=== PATIENT | male | born 1935 | race Caucasian/White ===

== ENCOUNTER 2019-08-03 16:54 | Inpatient (IN) | payer MEDICARE, BC, MEDICAID, SELFPAY ==
[2019-08-03 16:57] VITALS: BP 155/68; PULSE 72; RESP 18; TEMP 37; O2SAT 94; BMI 22.9
--- NOTE | 2019-08-03 17:39 | ED_ITS ---
HPI - General Adult General: Chief complaint: General Medical Stated complaint: CDIFF AND ECOLI; WEAKNESS Time Seen by Provider: 08/03/19 17:24 History of Present Illness: HPI narrative: Patient arrived via ambulance from correction originally went to [facility] and they refused to see him there in the ER because they said they do not do dialysis even though the patient is not scheduled for dialysis till tomorrow. Patient has history of C. difficile urinary tract infection Eduardo in place correction doctor said that he was dehydrated need a liter of fluid and they can get the IV started at the correction 3 nurses tried so he is here for IV fluids rehydration. Patient states he feels fine he said it does hurt some when he tries urinate through the Eduardo has no other problems. MD complaint: Dehydration renal failure Onset (ago): day(s) Associated symptoms: Reports no associated symptoms; Deny chest pain, dyspnea, fevers/chills, headache(s), nausea, rash or vomiting Review of Systems Narrative: See HPI patient here for dehydration IV fluid replacement patient has history of renal failure C. difficile E. coli infection patient states he feels fine would like to have some fluids been having some diarrhea. Is on antibiotic treatment. Const: Denies: fever, chills or body aches Eyes: Denies: change in vision or blurry vision ENMT: Denies: throat pain or nasal congestion Card: Denies: chest pain or shortness of breath on exertion Resp: Denies: shortness of breath, productive cough or non-productive cough GI: Denies: abdominal pain, nausea or vomiting : Denies: difficulty urinating Musc: Denies: extremity pain Skin/Breast: Denies: rash Neuro: Denies: headache Psych: Denies: anxiety or depression Clinton/Lymph: Denies: easy bruising PFSH ED PFSH: Social History Smoking and tobacco status: never smoked Physical Exam Const: COMMON NORMALS: no apparent distress, average body habitus and oriented x3 HENMT: COMMON NORMALS: normocephalic HEAD & SCALP: normal to inspection and normocephalic FACE & SINUS: normal facial exam Eye: COMMON NORMALS: conjunctivae normal GENERAL EYE: normal appearance of both eyes CONJUNCTIVA: Yes conjunctivae normal Neck/C-Spine: COMMON NORMALS: no JVD Chest: COMMONS NORMALS: inspection of chest normal Resp: COMMON NORMALS: normal respiratory effort and clear to auscultation bilaterally AUSCULTATION: clear to auscultation bilaterally Cardio: COMMON NORMALS: no JVD, regular rate and regular rhythm RATE: regular rate RHYTHM: regular rhythm GI: COMMON NORMALS: normal to inspection, nondistended, normoactive bowel sounds : BLADDER/KIDNEY EXAM: Yes other (Eduardo is in place) Extremity: COMMON NORMALS: normal to inspection and full ROM Neuro: COMMON NORMALS: oriented x3 Skin: COMMON NORMALS: negative for skin turgor normal (Poor turgor) GENERAL SKIN EXAM: abnormal elasticity and decreased turgor (Poor turgor) Course Vital Signs: Vital signs: Vital Signs Temperature 98.6 F 08/03/19 16:57 Pulse Rate 69 08/03/19 21:12 Respiratory Rate 18 08/03/19 21:12 Blood Pressure 136/62 08/03/19 21:12 Pulse Oximetry 93 08/03/19 21:12 MDM - General Adult MDM Narrative: Medical decision making narrative: spoke with Dr. England and Dr. De Leon pt to be admitted Lab Data: Labs: Lab Results 08/03/19 08/03/19 08/03/19 Range/Units 17:47 17:47 19:34 WBC 22.8 H (4.0-10.0) 10^3/ uL RBC 2.52 L (4.1-5.3) 10^6/u L Hgb 8.3 L (11.7-16.6) g/dL Hct 28.4 L (42.0-52.0) % MCV 112.7 H (80-94) fL MCH 32.9 (28.0-34.0) pg MCHC 29.2 L (30.0-36.0) g/dL RDW 21.9 H (12.1-15.1) % Plt Count 324 (130-400) 10^3/c mm MPV 13.0 H (7.4-10.4) fL Neut % (Auto) 57.8 % Lymph % (Auto) 2.9 % [place] % (Auto) 38.2 % Eos % (Auto) 0.0 % Baso % (Auto) 0.0 % Neut # (Auto) 13.1 H (1.8-7.7) 10^3/u L Lymph # (Auto) 0.7 L (0.8-4.8) 10^3/u L [place] # (Auto) 8.7 H (0.2-0.9) 10^3/u L Eos # (Auto) 0.0 (0.0-0.8) 10^3/u L Baso # (Auto) 0.0 (0.0-0.1) 10^3/u L Nucleated RBC % (a uto) 0.1 % Nucleated RBCs # 0.0 /100WBC Sodium 136 (136-145) mmol/L Potassium 4.3 (3.5-5.1) mmol/L Chloride 96 L (98-107) mmol/L Carbon Dioxide 26 (22-29) mmol/L Anion Gap 18.3 (5-19) BUN 51 H (8-23) mg/dL Creatinine 8.9 H* (0.7-1.2) mg/dL Glucose 91 (65-115) mg/dL Calculated Osmolal ity 280 L (285-295) mOsm/k g Calcium 8.4 L (8.5-10.5) mg/dL Total Bilirubin 0.6 (0.15-1.2) mg/dL AST 14 (0-40) U/L ALT 7 (0-41) U/L Alkaline Phosphata se 60 (40-130) IU/L Total Protein 7.6 (6.6-8.7) g/dL Albumin 3.6 (3.5-5.2) g/dL Globulin 4.0 (1.3-4.6) g/dL Urine Color Yellow (Yellow) Urine Appearance Cloudy (CLEAR) Urine pH 8 H (5-7) Ur Specific Gravit y 1.010 (1.005-1.030) Urine Protein 1+ H (Negative) Urine Glucose (UA) Norm (Normal) Urine Ketones Negative (Negative) Urine Blood 3+ H (Negative) Urine Nitrate Negative (Negative) Urine Bilirubin Neg (NEGATIVE) Prot Sulfosalicyli c Acd Positive (Negative) Urine Urobilinogen Norm (Negative) mg/dL Ur Leukocyte Ira ase 2+ H (Negative) Urine RBC 5-10 H (0-2) /hpf Urine WBC >100 H (0-5) /hpf Ur Squamous Epith Cells 0-4 H (0-5) Urine Bacteria 3+ H (NONE) Discharge Plan Discharge Patient Disposition: Admitted As Inpatient Clinical Impression: Clostridioides difficile infection, Acute UTI, Norovirus Chronic renal disease Qualifiers: Chronic kidney disease stage: stage 4 (severe) Qualified Code(s): N18.4 - Chronic kidney disease, stage 4 (severe) Condition: Stable Coding Level of Care Code 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
[2019-08-03 18:12] LABS: Hematocrit 28.4 % (42.0-52.0); Hemoglobin 8.3 g/dL (11.7-16.6); Lymphocytes # 0.7 10^3/uL (0.8-4.8); Lymphocytes % 2.9 %; Mean Corpuscular HGB Conc 29.2 g/dL (30.0-36.0); Mean Corpuscular Hemoglobin 32.9 pg (28.0-34.0); Mean Corpuscular Volume 112.7 fL (80-94); Monocytes # 8.7 10^3/uL (0.2-0.9); Monocytes % 38.2 %; Neutrophils # 13.1 10^3/uL (1.8-7.7); Neutrophils % 57.8 %; Nucleated Red Blood Cells % 0.1 %; Platelet Count 324 10^3/cmm (130-400); Red Blood Count 2.52 10^6/uL (4.1-5.3); Red Cell Distribution Width 21.9 % (12.1-15.1); White Blood Count 22.8 10^3/uL (4.0-10.0)
[2019-08-03 18:31] LABS: Alanine Aminotransferase 7 U/L (0-41); Albumin Level 3.6 g/dL (3.5-5.2); Alkaline Phosphatase 60 IU/L (40-130); Anion Gap 18.3 (5-19); Aspartate Amino Transferase 14 U/L (0-40); Blood Urea Nitrogen 51 mg/dL (8-23); Calcium 8.4 mg/dL (8.5-10.5); Carbon Dioxide 26 mmol/L (22-29); Chloride 96 mmol/L (98-107); Glucose 91 mg/dL (65-115); Osmolality Calculated 280 mOsm/kg (285-295); Potassium 4.3 mmol/L (3.5-5.1); Sodium 136 mmol/L (136-145); Total Bilirubin 0.6 mg/dL (0.15-1.2); Total Protein 7.6 g/dL (6.6-8.7)
[2019-08-03] MEDS: sodium chloride 0.9% 1,000 ML 999 ML IV (18:46)
[2019-08-03 18:47] VITALS: PULSE 74; RESP 18; O2SAT 92
[2019-08-03 18:49] LABS: Slide Review Slide Review Perform
--- NOTE | 2019-08-03 19:04 | XR_ITS ---
WS: [id number] PORTABLE CHEST HISTORY: low sat COMPARISON: None available. Hyperinflated lungs. No pneumonia. Interstitial thickening at the lung bases may be chronic or due to pneumonitis. Inflammatory changes were noted at the lung bases on the CT from 08/03/2019. No pleural effusion or pneumothorax. Cardiac size: Normal. Mediastinum/Aorta: Mild atherosclerosis aorta. No osseous abnormality seen. Arterial stent in the soft tissues of the LEFT upper extremity. XR/XR chest 1V portable [id number] IMPRESSION: 1. Chronic emphysema. 2. Interstitial thickening at the lung bases corresponds to pneumonitis and in flammatory changes as seen on the CT from 08/03/2019.
--- NOTE | 2019-08-03 19:17 | CTR_ITS ---
PROCEDURE INFORMATION: Exam: CT Abdomen And Pelvis Without Contrast Exam date and time: 08/03/2019 7:18 PM Age: 83 years old Clinical indication: Abnormal findings; Abnormal lab test; Other: C-diff and norovirus; Prior surgery; Surgery date: 6+ months; Surgery type: Nephrectomy; Additional info: C. Diff, norovirus, dialysis TECHNIQUE: Imaging protocol: Computed tomography of the abdomen and pelvis without contrast. Total DLP: 617.68 mGy-cm Radiation optimization: All CT scans at this facility use at least one of these dose optimization techniques: automated exposure control; mA and/or kV adjustment per patient size (includes targeted exams where dose is matched to clinical indication); or iterative reconstruction. COMPARISON: No relevant prior studies available. FINDINGS: Tubes, catheters and devices: A balloon bladder catheter is present. Lungs: Nonspecific bibasilar opacity is present, consistent with atelectasis, edema, or pneumonia. There is some pneumonitis with a tree-in-bud appearance in the right middle lobe image 4 in 5. Pleural space: There are small pleural effusions. Heart: There is a trace amount of pericardial fluid. Mediastinum: A small hiatal hernia is present. Liver: Unremarkable.No mass. Gallbladder and bile ducts: The gallbladder is partially collapsed. Pancreas: Normal. No ductal dilation. Spleen: Normal. No splenomegaly. Adrenals: Normal. No mass. Kidneys and ureters: There is a 1.2 cm hyperdense lesion midpole right kidney with Hounsfield unit measurement of 100. This is compatible with a hemorrhagic or proteinaceous cyst. Next live there is a solitary right kidney. No hydronephrosis or stones. Simple fluid density right renal cysts are also noted with the largest protruding from the lower pole right kidney measuring 2.2 cm in size. Stomach and bowel: There is mild diffuse small bowel distention with fluid with mild wall thickening compatible with enteritis. There is a very mild wall thickening in the colon compatible with very mild diffuse colitis. There is fluid density within the colon compatible with probable diarrhea. Appendix: A normal appendix is identified. Intraperitoneal space: No free air. No abscess. 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 No leak. Both proximal right common iliac arteries measure 1.5 cm. Lymph nodes: Unremarkable.No enlarged lymph nodes. Bladder: There is nonspecific bladder wall thickening. This may be related to incomplete distention. Reproductive: The prostate demonstrates moderate nonspecific enlargement. The seminal vesicles are normal. Bones/joints: Osteopenia and moderate degenerative changes in the spine are noted. No acute bony abnormality. Soft tissues: There is a small fat filled right inguinal hernia. Other findings: There is severe emphysematous changes. CT/CT abdomen pelvis wo con [id number] IMPRESSION: 1. Nonspecific bibasilar opacity is present, consistent with atelectasis, edema, or pneumonia. There are small pleural effusions. 2. Solitary right kidney. Fluid density right renal cortical cysts and hemorrhagic/proteinaceous cyst right kidney. No follow-up is necessary. No hydronephrosis or nephrolithiasis. 3. Mild small bowel enteritis. Mild diffuse colitis. No abscess or free air. Radiation Dose CTDIVOL = (mGy): DLP = 617.68 (mGy-cm)
[2019-08-03] MEDS: metroNIDAZOLE 500 MG Tablet 250 MG PO (20:14)
[2019-08-03 20:16] LABS: Add Urine Microscopic? YES; Bilirubin Urine Neg (NEGATIVE); Blood Urine 3+ (Negative); Glucose Urine UA Norm (Normal); Ketones Urine Negative (Negative); Leukocyte Esterase Urine 2+ (Negative); Nitrate Urine Negative (Negative); Protein Urine 1+ (Negative); Sulfosalicylic Acid Urine Positive (Negative); Urine Appearance Cloudy (CLEAR); Urine Color Yellow (Yellow); Urobilinogen Urine Norm (Negative); pH Urine 8 (5-7)
[2019-08-03 20:17] LABS: Add Urine Culture? Yes; Bacteria Urine 3+; Squamous Epithelial Cell Urine 0-4 (0-5); WBC Urine >100 /hpf (0-5)
[2019-08-03 21:12] VITALS: BP 136/62; PULSE 69; RESP 18; O2SAT 93
--- NOTE | 2019-08-03 22:27 | P.HP_ITS ---
Providers/Chief Complaint Chief Complaint: CDIFF AND ECOLI; WEAKNESS History of Present Illness RYLIE FLOYD is a 83 year old male who carries diagnosis of end-stage renal disease Sunday hemodialysis dependent, resident of a [place] [facility] came in today after 3-day history of diarrhea. Patient is stating that his symptoms started 3 days ago, before that he was getting bowel regimen, he was having clear watery diarrhea, it was profuse, he required a urinary catheter bec ause he was needing frequent diaper change. No fever or blood noticed. He is denying recent use of antibiotics, no chest pain shortness of breath nausea or vomiting. I called [place] [facility] to get the report, nurses telling me that there are 7-8 people in the same area who have diarrhea, Mr. Cabrera was sent to [facility] where he was resuscitated with 1 L fluid for dehydration, his stool studies are positive for C. difficile and norovirus he was sent to our hospital because he will require dialysis in the morning. Diagnosis in ER revealed severe leukocytosis 22.8, severe anemia hemoglobin 8.3 Normal potassium, abnormal creatinine 8.9, He is having recurrent episodes of loose stools, he has been afebrile, urinalysis shows cloudy urine with positive leukocyte esterase he was given oral vancomycin and ceftriaxone in the ER (patient is stating that he suffered from dysuria 2 days ago which is not the case anymore and Eduardo catheter was placed when he experienced profuse diarrhea) Review of Systems Const: Reports: body aches, fatigue and malaise; Denies: fever or chills Eyes: Denies: change in vision or blurry vision ENMT: Denies: throat pain Card: Denies: chest pain Resp: Denies: shortness of breath GI: Reports: diarrhea and change in stool character; Denies: abdominal pain, nausea or vomiting : Reports: urinary urgency; Denies: flank pain or difficulty urinating Musc: Denies: neck pain or back pain Skin/Breast: Denies: rash or itching Neuro: Denies: headache Psych: Denies: anxiety Endo: Denies: excessive urination Clinton/Lymph: Denies: easy bruising All/Imm: Denies: hives Medications/Allergies Home Medications Medication Instructions Recorded Confirmed Last Taken Type alum-mag hydroxide-simeth [Mylanta 30 ml PO TID PRN 08/03/19 08/03/19 08/01/19 History Maximum Strength] bisacodyl [Dulcolax (bisacodyl)] 5 mg PO DAILY PRN 08/03/19 08/03/19 Unknown History bisacodyl [Dulcolax (bisacodyl)] 10 mg NV DAILY PRN 08/03/19 08/03/19 Unknown History diphenhydramine HCl [Benadryl 25 mg PO Q6H PRN 08/03/19 08/03/19 Unknown History Allergy] loratadine [Claritin] 10 mg PO DAILY 08/03/19 08/03/19 08/03/19 History magnesium citrate 150 ml PO DAILY PRN 08/03/19 08/03/19 Unknown History magnesium hydroxide [Milk of 30 ml PO DAILY PRN 08/03/19 08/03/19 Unknown History Magnesia] midodrine 5 mg PO QMWF 08/03/19 08/03/19 08/01/19 History midodrine 10 mg PO TID 08/03/19 08/03/19 08/03/19 History omeprazole 20 mg PO DAILY 08/03/19 08/03/19 08/03/19 History ondansetron HCl [Zofran] 4 mg PO Q6H PRN 08/03/19 08/03/19 Unknown History pantoprazole [Protonix] 40 mg PO DAILY 08/03/19 08/03/19 08/03/19 History ydkvfxqquzrlg-OK-zifjodyzawv 15 ml PO Q4H PRN 08/03/19 08/03/19 Unknown History [Robitussin Cough and Cold CF] vit B,B-PR-yapu-selen-vit D3-E 1 tab PO DAILY 08/03/19 08/03/19 08/03/19 History [RenaPlex-D] Allergies Allergy/AdvReac Type Severity Reaction Status Date / Time hydrocodone Allergy Unknown Verified 08/03/19 17:06 oxycodone Allergy Unknown Verified 08/03/19 17:06 PFSH Acute PFSH: Medical History (Updated 08/03/19 @ 23:32 by Ralph Stanley MD) 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 Chronic anemia Dieulafoy lesion (hemorrhagic) of intestine DNR (do not resuscitate) End stage renal disease GI bleed Due to dieulafoy lesion, AVM Glaucoma Metabolic encephalopathy Mitral valve regurgitation NSTEMI (non-ST elevated myocardial infarction) Prostate cancer s/p cryotherapy Recurrent UTI Renal cell carcinoma Left-sided Small bowel obstruction Takotsubo cardiomyopathy Thrombocytopenia Surgical History (Updated 08/03/19 @ 23:30 by Ralph Stanley MD) H/O colectomy 7 inches removed H/O inguinal hernia repair H/O nasal septoplasty History of nephrectomy Left-sided S/P colonoscopic polypectomy Family History (Updated 08/03/19 @ 23:30 by Ralph Stanley MD) Denies family history of Clotting disorder Dementia Social History (Updated 08/03/19 @ 23:30 by Ralph Stanley MD) Smoking and tobacco status: never smoked Alcohol intake: never Substance/Drug Use: never Housing: [facility] Vitals/I&O/Wt Last Vital Signs Temp 98.6 F 08/03/19 16:57 Pulse 69 08/03/19 21:12 Resp 18 08/03/19 21:12 BP 136/62 08/03/19 21:12 Pulse Ox 93 08/03/19 21:12 08/03/19 08/03/19 08/03/19 06:59 14:59 22:59 Intake Total 1000 / 1000 Balance 1000 / 1000 Weight last 48 hrs Weight 72.575 kg Physical Exam Narrative: EXAM NARRATIVE: This is a very pleasant male He sitting in the bed without any active distress able to give me all the details of mentioned above S1, S2 no tachycardia or signs of heart failure, clinically looks dehydrated Abdomen soft nontender nondistended bowel sound present Lungs are clear to auscultation Neurologically nonfocal exam Eduardo catheter draining cloudy yellow urine EOMI, PERRLA Appropriate mood and affect No ischemia gangrene ulcer of lower extremity Clinically dehydrated Data : 08/03/19 17:47 08/03/19 17:47 A&P Assessment and plan (1) Clostridioides difficile infection: Status: Acute (2) Acute UTI: Status: Acute (3) Norovirus: Status: Acute (4) Chronic renal disease: Status: Acute Qualifiers: Chronic kidney disease stage: stage 4 (severe) Qualified Code(s): N18.4 - Chronic kidney disease, stage 4 (severe) (5) Chronic anemia: Status: Acute Additional A&P Information Severe C. difficile without sepsis severe leukocytosis without tachycardia, tachypnea or fever, abnormal creatinine, age above 60 Oral vancomycin higher dose, IV metronidazole Contact isolation No recent use of antibiotics, there are 7 other people experiencing diarrhea at the [place] [facility], he also has norovirus, He has been resuscitated with 1 L normal saline fluid, currently not tachycardic, I would continue low-dose maintenance fluid because of profuse diarrhea Records reviewed CT abdomen consistent with enteritis/colitis and bladder wall thickening UTI: Patient endorsed dysuria 2 days ago with onset of diarrhea, I would cont inue ceftriaxone, he is endorsing signs plus urinalysis is cloudy urine with positive leukocyte esterase, remove Eduardo catheter before his discharge End-stage renal disease Sunday hemodialysis dependent Telemetry neon installer has been informed and consulted No urgent need of dialysis Chronic anemia due to GI blood loss I would hold DVT prophylaxis with anticoagulation, keep him on Protonix 40 mg p.o. daily, Monitor H&H, previously he has required multiple transfusions, endoscopies and colonoscopies because of AV malformations in the gastrointestinal mucosa Dehydration due to profuse diarrhea Currently not sinus tachycardia, I will check lactic acid, judicious use of fluids DNR/DNI Renal diet Contact isolation DVT prophylaxis: SCDs Attestations Medical Necessity Statement*: Anticipating stay in the hospital to cross more than 2 days currently has severe C. 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
[2019-08-03 22:59] VITALS: BP 124/62; PULSE 75; RESP 18; O2SAT 94
[2019-08-03 23:10] VITALS: BP 124/62; PULSE 72; RESP 16; TEMP 37; O2SAT 93
[2019-08-03 23:48] VITALS: BP 138/51; PULSE 82; RESP 18; TEMP 36.4; O2SAT 90
[2019-08-04] MEDS: sodium chloride 0.9% 1,000 ML 30 ML IV (00:28)
--- NOTE | 2019-08-04 00:36 | PC.NURSE ---
pt with loose stool up to cammode without difficutly.
--- NOTE | 2019-08-04 00:38 | PC.NURSE ---
Er nurse reported pt with cook from group home, pt reports having difficulty voiding yesterday and cook was placed at that time. Pt reports does dialysis m/w/f at [facility]. Fistula in place to left arm sign placed for no blood draws/iv or bp to that arm.
[2019-08-04] MEDS: metroNIDAZOLE IV 500 MG/100 ML PREMIX 100 MG IV ×3 (03:48→20:39)
[2019-08-04 03:49] VITALS: BP 110/53; PULSE 70; RESP 17; TEMP 36.3; O2SAT 93
[2019-08-04 05:45] LABS: Basophils % 0.1 %; Eosinophils % 0.1 %; Hematocrit 24.4 % (42.0-52.0); Hemoglobin 7.2 g/dL (11.7-16.6); Lymphocytes # 0.6 10^3/uL (0.8-4.8); Lymphocytes % 3.5 %; Mean Corpuscular HGB Conc 29.5 g/dL (30.0-36.0); Mean Corpuscular Hemoglobin 33.3 pg (28.0-34.0); Mean Platelet Volume 12.8 fL (7.4-10.4); Monocytes # 5.7 10^3/uL (0.2-0.9); Monocytes % 32.7 %; Neutrophils # 10.9 10^3/uL (1.8-7.7); Neutrophils % 62.3 %; Nucleated Red Blood Cells % 0 %; Platelet Count 272 10^3/cmm (130-400); Red Blood Count 2.16 10^6/uL (4.1-5.3); Red Cell Distribution Width 21.4 % (12.1-15.1); White Blood Count 17.4 10^3/uL (4.0-10.0)
[2019-08-04 05:55] LABS: Anion Gap 16.3 (5-19); Blood Urea Nitrogen 54 mg/dL (8-23); Calcium 7.9 mg/dL (8.5-10.5); Carbon Dioxide 24 mmol/L (22-29); Chloride 102 mmol/L (98-107); Glucose 95 mg/dL (65-115); Osmolality Calculated 284 mOsm/kg (285-295); Potassium 4.3 mmol/L (3.5-5.1); Sodium 138 mmol/L (136-145)
[2019-08-04 07:00] VITALS: BP 100/49; PULSE 65; RESP 24; TEMP 36.6; O2SAT 93
[2019-08-04] MEDS: cefTRIAXone 1,000 MG in sodium chloride 0.9% (plus) 50 ML 100 MG IV (09:27)
[2019-08-04] MEDS: midodrine 5 mg TABLET 10 MG PO ×3 (09:28→20:39)
[2019-08-04 11:00] VITALS: BP 120/47; PULSE 69; RESP 16; TEMP 36.4; O2SAT 94
--- NOTE | 2019-08-04 11:33 | PM.PN ---
Subjective Subjective: Interval history: Chart reviewed, had 600 mL urine output overnight, 2 BMs so far today, HD today. AM labs noted, decreasing leukocytosis. Patient seen and examined following return from hemodialysis, reports feeling better, stool seems to be solidifying, good oral intake. Medications: Reviewed: Yes Medication Review Details: Active Medications Generic Name Dose Route Start Last Admin Trade Name Freq PRN Reason Stop Dose Admin Metronidazole 500 mg in 100 mls @ 100 mls/hr 08/04/19 04:00 08/04/19 03:48 Flagyl Iv IV 100 mls/hr Q8H CLAUDIA Administration Ceftriaxone Sodium 1,000 mg/ 50 mls @ 100 mls/ hr 08/04/19 09:00 08/04/19 09:27 Sodium Chloride IV 100 mls/hr DAILY CLAUDIA Administration Protocol Sodium Chloride 1,000 mls @ 30 ml s/hr 08/04/19 00:06 08/04/19 00:28 Sodium Chloride 0.9% IV 30 mls/hr .Q24H CLAUDIA Administration Midodrine 10 mg 08/04/19 09:00 08/04/19 09:28 Proamatine PO 10 mg TID CLAUDIA Administration Vancomycin HCl 250 mg 08/04/19 09:00 08/04/19 09:28 Vancocin PO 2.5 ml QID CLAUDIA Administration hydrocodone Allergy (Verified 08/03/19 17:06) Unknown oxycodone Allergy (Verified 08/03/19 17:06) Unknown Vitals/I&O/Wt Last Vital Signs Temp 97.5 F L 08/04/19 11:00 Pulse 69 08/04/19 11:00 Resp 16 08/04/19 11:00 BP 120/47 08/04/19 11:00 Pulse Ox 94 08/04/19 11:00 08/03/19 08/04/19 08/04/19 22:59 06:59 14:59 Intake Total 1000 / 1000 170 / 1170 240 / 240 Output Total 600 / 600 Balance 1000 / 1000 -430 / 570 240 / 240 Weight last 48 hrs Weight 72.575 kg Physical Exam Const: COMMON NORMALS: no apparent distress and oriented x3 GENERAL APPEARANCE: cooperative and comfortable ORIENTATION/CONSCIOUSNESS: Yes awake HENMT: COMMON NORMALS: normocephalic, head/scalp atraumatic, hearing grossly normal bilaterally and moist oral mucous membranes HEAD & SCALP: normocephalic and atraumatic Eye: COMMON NORMALS: PERRL, EOMs intact bilaterally and conjunctivae normal CONJUNCTIVA: Yes conjunctivae normal PUPIL: Yes PERRL Neck/C-Spine: COMMON NORMALS: full ROM GENERAL: Yes normal visual inspection and Yes trachea midline Resp: COMMON NORMALS: normal respiratory effort, no retractions, no use of accessory muscles and clear to auscultation bilaterally EFFORT & INSPECTION: Yes able to speak in complete sentences, Yes symmetric chest movement and No tachypneic AUSCULTATION: clear to auscultation bilaterally Cardio: COMMON NORMALS: regular rate, regular rhythm, S1 normal heart sound, S2 normal heart sound and no murmurs RATE: regular rate RHYTHM: regular rhythm HEART SOUNDS: S1 normal and S2 normal GI: COMMON NORMALS: normal to inspection, nondistended, normoactive bowel sounds, soft to palpation and non-tender PALPATION: Yes soft Extremity: COMMON NORMALS: normal to inspection, full ROM and no clubbing, cyanosis or edema OTHER: -LUE AV fistula Neuro: COMMON NORMALS: oriented x3, moves all extremities, no focal motor deficits and no sensory deficits noted Psych: COMMON NORMALS: mental status grossly normal, thought process normal, cooperative, affect normal and speech normal SPEECH: Yes normal speech THOUGHT PROCESS: normal thought process Skin: COMMON NORMALS: no rashes or lesions noted, no jaundice, no petechiae and no mottling GENERAL SKIN EXAM: no rashes or lesions noted Data : 08/04/19 05:31 08/04/19 05:31 Micro: Microbiology 08/04/19 00:17 Blood Culture - Preliminary Blood SPECIMEN COLLECTED 08/04/19 00:16 Blood Culture - Preliminary Blood SPECIMEN COLLECTED A&P Assessment and plan (1) Clostridioides difficile infection: -found to be positive for C.difficile and Norovirus -continue oral vancomycin and Flagyl; dual antibiotic treatment due to severity of infection (increased leukocytosis) -contact isolation precautions -noted evidence of mild enteritis and mild diffuse colitis on imaging, no abscess or free air noted Status: Acute (2) Acute UTI: -UA strongly indicative of infection (+pyuria/bacteria/LE) -f/u urine and blood cx -continue Ceftriaxone -had Eduardo catheter placed at [facility] Status: Acute (3) Chronic renal disease: -patient has known ESRD on HD (MWF), access is L AV fistula -Nephrology consult appreciated -renally dose meds, avoid nephrotoxins -has solitary R kidney Status: Chronic Qualifiers: Chronic kidney disease stage: stage 4 (severe) Qualified Code(s): N18.4 - Chronic kidney disease, stage 4 (severe) Additional A&P Information -Advanced age -has known acute on chronic macrocytic anemia; baseline Hg unknown; continue to monitor H/H -prior hx of RCC s/p L nephrectomy -hx of cardiomyopathy -renal diet as tolerated -DVT ppx with SCDs, no AC due to anemia -Dispo: [facility] ([facility]) -Code status: DNR/DNI Attestations Medical Necessity Statement*: Patient requires hospitalization for continued treatment of C. difficile colitis and UTI pending culture results, on IV antibiotics. Time Spent in Patient Care: Greater than 35 minutes (>than 50% of time spent in counselling and/or direct pt care on unit). Coding Level of Care Code Acute Filler Shredding Machine Loader for Chg Fwd Exam Comprehensive Diagnoses Clostridioides difficile infection A49.8 Acute UTI N39.0 Chronic renal disease N18.4 Chronic kidney disease stage: stage 4 (severe)
--- NOTE | 2019-08-04 11:36 | P.PN_ITS ---
Subjective Subjective: Interval history: Thanks for consult. Mr Patel came in with severe diarrhea for the last 3 days prior to admission. This is starting to resolve in house and he is eating and drinking well. He denies abdo pain. He has been on dialysis for 3 years via a left AVF. He is on HD for 3.5 hrs. He denies edema and other volume assoc Sx. No uremic Sx. Hemodynamics are stable. Vitals/I&O/Wt Last Vital Signs Temp 97.5 F L 08/04/19 11:00 Pulse 69 08/04/19 11:00 Resp 16 08/04/19 11:00 BP 120/47 08/04/19 11:00 Pulse Ox 94 08/04/19 11:00 08/03/19 08/04/19 08/04/19 22:59 06:59 14:59 Intake Total 1000 / 1000 170 / 1170 240 / 240 Output Total 600 / 600 Balance 1000 / 1000 -430 / 570 240 / 240 Weight last 48 hrs Weight 72.575 kg Physical Exam Narrative: EXAM NARRATIVE: This is a very pleasant male He sitting in the bed without any active distress able to give me all the details of mentioned above S1, S2 no tachycardia or signs of heart failure, clinically looks dehydrated Abdomen soft nontender nondistended bowel sound present Lungs are clear to auscultation Neurologically nonfocal exam Eduardo catheter draining cloudy yellow urine EOMI, PERRLA Appropriate mood and affect No ischemia gangrene ulcer of lower extremity Clinically dehydrated Const: COMMON NORMALS: no apparent distress, average body habitus and oriented x3 HENMT: COMMON NORMALS: normocephalic HEAD & SCALP: normal to inspection and normocephalic FACE & SINUS: normal facial exam Eye: COMMON NORMALS: conjunctivae normal GENERAL EYE: normal appearance of both eyes CONJUNCTIVA: Yes conjunctivae normal Neck/C-Spine: COMMON NORMALS: no JVD Chest: COMMONS NORMALS: inspection of chest normal Resp: COMMON NORMALS: normal respiratory effort and clear to auscultation bilaterally AUSCULTATION: clear to auscultation bilaterally Cardio: COMMON NORMALS: no JVD, regular rate and regular rhythm RATE: regular rate RHYTHM: regular rhythm GI: COMMON NORMALS: normal to inspection, nondistended, normoactive bowel sounds : BLADDER/KIDNEY EXAM: Yes other (Eduardo is in place) Extremity: COMMON NORMALS: normal to inspection and full ROM Neuro: COMMON NORMALS: oriented x3 Skin: COMMON NORMALS: negative for skin turgor normal (Poor turgor) GENERAL SKIN EXAM: abnormal elasticity and decreased turgor (Poor turgor) Data : 08/04/19 05:31 08/04/19 05:31 Micro: Microbiology 08/04/19 00:17 Blood Culture - Preliminary Blood SPECIMEN COLLECTED 08/04/19 00:16 Blood Culture - Preliminary Blood SPECIMEN COLLECTED A&P Additional A&P Information 1. ESRD - for HD today, 3.5hrs, 3K, no UF - dose meds for eGFR < 15 on dialysis - cont MWF schedule 2. Diarrhea - CDiff r/o - Mgmt per primary team - resolving now - on gentle ivf 3. Hemodynamics stable 4. Anemia of ESRD - Hb pretty low and he will need PRBCs if it drops much more - EPO and iron as outpatient (if he has an extended stay I will dose in house) - thanks, will follow Attestations Medical Necessity Statement*: mgmt of ESRD Coding Level of Care Code Acute Supervisor Packing Room for Garrett Choi
[2019-08-04 15:00] VITALS: BP 149/55; PULSE 96; RESP 20; TEMP 36.4; O2SAT 95
[2019-08-04 19:00] VITALS: BP 162/71; PULSE 66; RESP 18; TEMP 36.4; O2SAT 98
[2019-08-04 23:00] VITALS: BP 149/57; PULSE 69; RESP 20; TEMP 36.9; O2SAT 95
[2019-08-05 03:00] VITALS: BP 126/55; PULSE 72; RESP 20; TEMP 36.6; O2SAT 90
[2019-08-05] MEDS: metroNIDAZOLE IV 500 MG/100 ML PREMIX 100 MG IV (04:10)
[2019-08-05 06:04] LABS: Basophils % 0.1 %; Eosinophils % 0.2 %; Hematocrit 24.8 % (42.0-52.0); Hemoglobin 7.2 g/dL (11.7-16.6); Lymphocytes # 0.5 10^3/uL (0.8-4.8); Lymphocytes % 4.2 %; Mean Corpuscular Hemoglobin 32.9 pg (28.0-34.0); Mean Corpuscular Volume 113.2 fL (80-94); Monocytes # 4.8 10^3/uL (0.2-0.9); Monocytes % 37.4 %; Neutrophils # 7.2 10^3/uL (1.8-7.7); Neutrophils % 56.1 %; Nucleated Red Blood Cells % 0 %; Platelet Count 245 10^3/cmm (130-400); Red Blood Count 2.19 10^6/uL (4.1-5.3); Red Cell Distribution Width 21.1 % (12.1-15.1); White Blood Count 12.7 10^3/uL (4.0-10.0)
[2019-08-05 06:28] LABS: Anion Gap 16.4 (5-19); Blood Urea Nitrogen 28 mg/dL (8-23); Calcium 8.3 mg/dL (8.5-10.5); Carbon Dioxide 26 mmol/L (22-29); Chloride 102 mmol/L (98-107); Glucose 98 mg/dL (65-115); Osmolality Calculated 287 mOsm/kg (285-295); Potassium 4.4 mmol/L (3.5-5.1); Sodium 140 mmol/L (136-145)
[2019-08-05 07:40] VITALS: BP 139/63; PULSE 73; RESP 18; TEMP 37; O2SAT 97
[2019-08-05] MEDS: sodium chloride 0.9% 1,000 ML 30 ML IV (07:53)
[2019-08-05] MEDS: midodrine 5 mg TABLET 10 MG PO ×3 (09:00→21:10)
[2019-08-05] MEDS: cefTRIAXone 1,000 MG in sodium chloride 0.9% (plus) 50 ML 100 MG IV (09:00)
[2019-08-05 11:00] VITALS: BP 154/61; PULSE 63; RESP 18; TEMP 36.9; O2SAT 95
--- NOTE | 2019-08-05 11:59 | P.PN_ITS ---
Subjective Subjective: Interval history: AM labs noted, decreasing leukocytosis. Prelim urine cx-GNRs. Patient seen and examined, resting in bed, states he has had a good day so far, 3 soft BMs so far, good appetite. Medications: Reviewed: Yes Medication Review Details: Active Medications Generic Name Dose Route Start Last Admin Trade Name Freq PRN Reason Stop Dose Admin Metronidazole 500 mg in 100 mls @ 100 mls/hr 08/04/19 04:00 08/05/19 05:10 Flagyl Iv IV Infused Q8H CLAUDIA Infusion Ceftriaxone Sodium 1,000 mg/ 50 mls @ 100 mls/ hr 08/04/19 09:00 08/05/19 09:00 Sodium Chloride IV 100 mls/hr DAILY CLAUDIA Administration Protocol Sodium Chloride 1,000 mls @ 30 ml s/hr 08/04/19 00:06 08/05/19 07:53 Sodium Chloride 0.9% IV 30 mls/hr .Q24H CLAUDIA Administration Midodrine 10 mg 08/04/19 09:00 08/05/19 09:00 Proamatine PO 10 mg TID CLAUDIA Administration Ondansetron HCl 4 mg 08/05/19 07:46 Zofran IVP Q6H PRN NAUSEA AND VOMITI NG Vancomycin HCl 250 mg 08/04/19 09:00 08/05/19 09:01 Vancocin PO 2.5 ml QID CLAUDIA Administration hydrocodone Allergy (Verified 08/03/19 17:06) Unknown oxycodone Allergy (Verified 08/03/19 17:06) Unknown Vitals/I&O/Wt Last Vital Signs Temp 98.4 F 08/05/19 11:00 Pulse 63 08/05/19 11:00 Resp 18 08/05/19 11:00 BP 154/61 08/05/19 11:00 Pulse Ox 95 08/05/19 11:00 08/04/19 08/05/19 08/05/19 22:59 06:59 14:59 Intake Total 760 / 1240 100 / 1340 992.5 / 992.5 Output Total 210 / 210 Balance 760 / 1240 -110 / 1130 992.5 / 992.5 Weight last 48 hrs Weight 72.575 kg Physical Exam Const: COMMON NORMALS: no apparent distress and oriented x3 GENERAL APPEARANCE: cooperative and comfortable ORIENTATION/CONSCIOUSNESS: Yes awake HENMT: COMMON NORMALS: normocephalic, head/scalp atraumatic, hearing grossly normal bilaterally and moist oral mucous membranes HEAD & SCALP: normocephalic and atraumatic Eye: COMMON NORMALS: PERRL, EOMs intact bilaterally and conjunctivae normal CONJUNCTIVA: Yes conjunctivae normal PUPIL: Yes PERRL Neck/C-Spine: COMMON NORMALS: full ROM GENERAL: Yes normal visual inspection and Yes trachea midline Resp: COMMON NORMALS: normal respiratory effort, no retractions, no use of accessory muscles and clear to auscultation bilaterally EFFORT & INSPECTION: Yes able to speak in complete sentences, Yes symmetric chest movement and No tachypneic AUSCULTATION: clear to auscultation bilaterally Cardio: COMMON NORMALS: regular rate, regular rhythm, S1 normal heart sound, S2 normal heart sound and no murmurs RATE: regular rate RHYTHM: regular rhythm HEART SOUNDS: S1 normal and S2 normal GI: COMMON NORMALS: normal to inspection, nondistended, normoactive bowel sounds, soft to palpation and non-tender PALPATION: Yes soft Extremity: COMMON NORMALS: normal to inspection, full ROM and no clubbing, cyanosis or edema OTHER: -LUE AV fistula Neuro: COMMON NORMALS: oriented x3, moves all extremities, no focal motor de ficits and no sensory deficits noted Psych: COMMON NORMALS: mental status grossly normal, thought process normal, cooperative, affect normal and speech normal SPEECH: Yes normal speech THOUGHT PROCESS: normal thought process Skin: COMMON NORMALS: no rashes or lesions noted, no jaundice, no petechiae and no mottling GENERAL SKIN EXAM: no rashes or lesions noted Data : 08/05/19 13:59 08/05/19 05:40 Micro: Microbiology 08/03/19 19:34 Urine Culture - Preliminary Urine,Clean Catch Gram Negative Rods 08/04/19 00:17 Blood Culture - Preliminary Blood NEGATIVE TO DATE 08/04/19 00:16 Blood Culture - Preliminary Blood NEGATIVE TO DATE A&P Assessment and plan (1) Clostridioides difficile infection: -found to be positive for C.difficile and Norovirus -continue oral vancomycin and Flagyl; dual antibiotic treatment due to severity of infection (increased leukocytosis) -contact isolation precautions -noted evidence of mild enteritis and mild diffuse colitis on imaging, no abscess or free air noted -has been afebrile, leukocytosis continues to decrease, has less frequent and more solid BMs, will d/c flagyl Status: Acute (2) Acute UTI: -UA strongly indicative of infection (+pyuria/bacteria/LE) -urine cx-GNRs, pending ID & sensitivity -blood cx: prelim negative -continue Ceftriaxone -had Eduardo catheter placed at [facility] Status: Acute (3) Chronic renal disease: -patient has known ESRD on HD (MWF), access is LUE AV fistula -Nephrology consult appreciated -renally dose meds, avoid nephrotoxins -has solitary R kidney Status: Chronic Qualifiers: Chronic kidney disease stage: stage 4 (severe) Qualified Code(s): N18.4 - Chronic kidney disease, stage 4 (severe) Additional A&P Information -Advanced age -has known acute on chronic macrocytic anemia; baseline Hg unknown; continue to monitor H/H -prior hx of RCC s/p L nephrectomy -hx of cardiomyopathy -anemia of chronic disease, baseline Hg unknown;gradually trending down, may need transfusion of blood products if continued drop. Continue to trend H/H closely -renal diet as tolerated -DVT ppx with SCDs, no AC due to anemia -Dispo: NH ([facility]) -Code status: DNR/DNI Attestations Medical Necessity Statement*: Patient requires hospitalization for continued antibiotic treatment pending urine culture results and continued monitoring of hemoglobin given worsening anemia. Time Spent in Patient Care: 16 - 35 minutes (>than 50% of time spent in counselling and/or direct pt care on unit) . Coding Level of Care Code Acute Transportation Director for Chg Fwd Exam Comprehensive Diagnoses Clostridioides difficile infection A49.8 Acute UTI N39.0 Chronic renal disease N18.4 Chronic kidney disease stage: stage 4 (severe)
--- NOTE | 2019-08-05 14:04 | P.PN_ITS ---
Subjective Subjective: Interval history: Feels good, quite jovial. No new issues. His diarrhea is improving. No uremic Sx and no SOB at this time. Medications: Reviewed: Yes Medication Review Details: Active Medications Generic Name Dose Route Start Last Admin Trade Name Freq PRN Reason Stop Dose Admin Metronidazole 500 mg in 100 mls @ 100 mls/hr 08/04/19 04:00 08/05/19 05:10 Flagyl Iv IV Infused Q8H CLAUDIA Infusion Ceftriaxone Sodium 1,000 mg/ 50 mls @ 100 mls/ hr 08/04/19 09:00 08/05/19 09:00 Sodium Chloride IV 100 mls/hr DAILY CLAUDIA Administration Protocol Sodium Chloride 1,000 mls @ 30 ml s/hr 08/04/19 00:06 08/05/19 07:53 Sodium Chloride 0.9% IV 30 mls/hr .Q24H CLAUDIA Administration Midodrine 10 mg 08/04/19 09:00 08/05/19 09:00 Proamatine PO 10 mg TID CLAUDIA Administration Ondansetron HCl 4 mg 08/05/19 07:46 Zofran IVP Q6H PRN NAUSEA AND VOMITI NG Vancomycin HCl 250 mg 08/04/19 09:00 08/05/19 09:01 Vancocin PO 2.5 ml QID CLAUDIA Administration hydrocodone Allergy (Verified 08/03/19 17:06) Unknown oxycodone Allergy (Verified 08/03/19 17:06) Unknown Vitals/I&O/Wt Last Vital Signs Temp 98.4 F 08/05/19 11:00 Pulse 63 08/05/19 11:00 Resp 18 08/05/19 11:00 BP 154/61 08/05/19 11:00 Pulse Ox 95 08/05/19 11:00 08/04/19 08/05/19 08/05/19 22:59 06:59 14:59 Intake Total 760 / 1240 100 / 1340 1262.5 / 1262.5 Output Total 210 / 210 Balance 760 / 1240 -110 / 1130 1262.5 / 1262.5 Weight last 48 hrs Weight 72.575 kg Physical Exam Narrative: EXAM NARRATIVE: This is a very pleasant male He sitting in the bed without any active distress able to give me all the details of mentioned above S1, S2 no tachycardia or signs of heart failure, clinically looks dehydrated Abdomen soft nontender nondistended bowel sound present Lungs are clear to auscultation Neurologically nonfocal exam Eduardo catheter draining cloudy yellow urine EOMI, PERRLA Appropriate mood and affect No ischemia gangrene ulcer of lower extremity Clinically dehydrated Const: COMMON NORMALS: no apparent distress, average body habitus and oriented x3 HENMT: COMMON NORMALS: normocephalic HEAD & SCALP: normal to inspection and normocephalic FACE & SINUS: normal facial exam Eye: COMMON NORMALS: conjunctivae normal GENERAL EYE: normal appearance of both eyes CONJUNCTIVA: Yes conjunctivae normal Neck/C-Spine: COMMON NORMALS: no JVD Chest: COMMONS NORMALS: inspection of chest normal Resp: COMMON NORMALS: normal respiratory effort and clear to auscultation bilaterally AUSCULTATION: clear to auscultation bilaterally Cardio: COMMON NORMALS: no JVD, regular rate and regular rhythm RATE: regular rate RHYTHM: regular rhythm GI: COMMON NORMALS: normal to inspection, nondistended, normoactive bowel sounds : BLADDER/KIDNEY EXAM: Yes other (Eduardo is in place) Extremity: COMMON NORMALS: normal to inspection and full ROM Neuro: COMMON NORMALS: oriented x3 Skin: COMMON NORMALS: negative for skin turgor normal (Poor turgor) GENERAL SKIN EXAM: abnormal elasticity and decreased turgor (Poor turgor) Data : 08/05/19 05:40 08/05/19 05:40 Micro: Microbiology 08/03/19 19:34 Urine Culture - Preliminary Urine,Clean Catch Gram Negative Rods 08/04/19 00:17 Blood Culture - Preliminary Blood NEGATIVE TO DATE 08/04/19 00:16 Blood Culture - Preliminary Blood NEGATIVE TO DATE A&P Additional A&P Information 1. ESRD - for HD tomorrow, 3.5hrs, 3K, no UF - dose meds for eGFR < 15 on dialysis - cont MWF schedule 2. Diarrhea - CDiff r/o - Mgmt per primary team - resolving now - good oral intake 3. Hemodynamics stable 4. Anemia of ESRD - Hb pretty low and he will need PRBCs if it drops much more - EPO and iron as outpatient (if he has an extended stay I will dose in house) - This is pretty profound for a well managed dialysis patient with good residual renal function and warrants further investigation. This should be done by the outpatient team if he is to be discharged in the next 24hrs - thanks, will follow Attestations Medical Necessity Statement*: mgmt of ESRD Coding Level of Care Code Acute Director Of Field Coordination for Garrett Choi
[2019-08-05 14:16] LABS: Hematocrit 25.5 % (42.0-52.0); Hemoglobin 7.2 g/dL (11.7-16.6)
[2019-08-05 16:00] VITALS: BP 130/53; PULSE 68; RESP 18; TEMP 36.8; O2SAT 93
[2019-08-05 20:00] VITALS: BP 153/62; PULSE 75; RESP 17; TEMP 36.6; O2SAT 91
[2019-08-06] VITALS (13 sets, daily range): BP systolic 123–155; BP diastolic 49–64; PULSE 58–81; RESP 17–24; TEMP 36.2–36.6; O2SAT 90–98
--- NOTE | 2019-08-06 04:03 | PC.NURSE ---
This aid responded to patients call light, and asked patient what he was needing. Patient responded that he felt the urge to urinate while he was in the bathroom, so he emptied his Eduardo bag into the toilet. Patient stated it relieved his urge to urinate. This aid educated patient on the necessity of staff emptying Eduardo catheter bag to accurately track output. Patient stated he understood, and would not do it again. Upon last assessment of Eduardo bag before patient emptied, it appeared to be half full of urine. Estimated amount of 1500 ml output based on last known assessment. Patient nurse and charge nurse notified.
[2019-08-06 05:15] LABS: Basophils % 0.2 %; Eosinophils % 0.2 %; Hematocrit 25.1 % (42.0-52.0); Lymphocytes # 0.6 10^3/uL (0.8-4.8); Mean Corpuscular HGB Conc 27.9 g/dL (30.0-36.0); Mean Corpuscular Hemoglobin 32.6 pg (28.0-34.0); Mean Corpuscular Volume 116.7 fL (80-94); Mean Platelet Volume 13.2 fL (7.4-10.4); Monocytes # 5.3 10^3/uL (0.2-0.9); Monocytes % 42.6 %; Neutrophils # 6.3 10^3/uL (1.8-7.7); Neutrophils % 49.8 %; Nucleated Red Blood Cells % 0 %; Platelet Count 240 10^3/cmm (130-400); Red Blood Count 2.15 10^6/uL (4.1-5.3); Red Cell Distribution Width 20.6 % (12.1-15.1); White Blood Count 12.5 10^3/uL (4.0-10.0)
[2019-08-06 05:27] LABS: Anion Gap 16.7 (5-19); Blood Urea Nitrogen 41 mg/dL (8-23); Calcium 8.1 mg/dL (8.5-10.5); Carbon Dioxide 24 mmol/L (22-29); Chloride 103 mmol/L (98-107); Glucose 93 mg/dL (65-115); Osmolality Calculated 285 mOsm/kg (285-295); Potassium 4.7 mmol/L (3.5-5.1); Sodium 139 mmol/L (136-145)
[2019-08-06 05:38] LABS: Slide Review Slide Review Perform
[2019-08-06] MEDS: midodrine 5 mg TABLET 10 MG PO ×2 (09:43→20:40)
[2019-08-06] MEDS: cefTRIAXone 1,000 MG in sodium chloride 0.9% (plus) 50 ML 100 MG IV (09:44)
[2019-08-06] MEDS: sodium chloride 0.9% 1,000 ML 30 ML IV (09:44)
--- NOTE | 2019-08-06 10:05 | PC.SOCIAL ---
IMM Page 2 of IMM updated and given to patient. Initialed, dated, and timed and placed in chart.
--- NOTE | 2019-08-06 11:15 | PC.NURSE ---
Patient speaking with Telenephrology at this time.
--- NOTE | 2019-08-06 11:16 | PM.PN ---
Subjective Subjective: Interval history: AM labs noted, decreasing leukocytosis. Urine culture finalized, jimenez-sensitive E.coli. Noted continued drop in hemoglobin so will transfuse 2 units per discussion with Dr. Rios. HD today. Received transfusion with HD. Eager to be discharged tomorrow. Somewhat reluctant to take oral vancomycin. Has had 2 solid BMs today. Medications: Reviewed: Yes Medication Review Details: Active Medications Generic Name Dose Route Start Last Admin Trade Name Freq PRN Reason Stop Dose Admin Ceftriaxone Sodium 1,000 mg/ 50 mls @ 100 mls/ hr 08/04/19 09:00 08/06/19 09:44 Sodium Chloride IV 100 mls/hr DAILY CLAUDIA Administration Protocol Sodium Chloride 1,000 mls @ 30 ml s/hr 08/04/19 00:06 08/06/19 09:44 Sodium Chloride 0.9% IV 30 mls/hr .Q24H CLAUDIA Administration Midodrine 10 mg 08/04/19 09:00 08/06/19 09:43 Proamatine PO 10 mg TID CLAUDIA Administration Ondansetron HCl 4 mg 08/05/19 07:46 Zofran IVP Q6H PRN NAUSEA AND VOMITI NG Vancomycin HCl 250 mg 08/04/19 09:00 08/06/19 09:45 Vancocin PO Not Given QID CLAUDIA hydrocodone Allergy (Verified 08/03/19 17:06) Unknown oxycodone Allergy (Verified 08/03/19 17:06) Unknown Vitals/I&O/Wt Last Vital Signs Temp 97.6 F 08/06/19 08:00 Pulse 80 08/06/19 08:00 Resp 18 08/06/19 08:00 BP 154/63 08/06/19 08:00 Pulse Ox 98 08/06/19 08:00 08/05/19 08/06/19 08/06/19 22:59 06:59 14:59 Intake Total 340 / 1602.5 1000.5 / 1000.5 Output Total 650 / 650 1500 / 2150 200 / 200 Balance -310 / 952.5 -1500 / -547.5 800.5 / 800.5 Physical Exam Const: COMMON NORMALS: no apparent distress and oriented x3 GENERAL APPEARANCE: cooperative and comfortable ORIENTATION/CONSCIOUSNESS: Yes awake HENMT: COMMON NORMALS: normocephalic, head/scalp atraumatic, hearing grossly normal bilaterally and moist oral mucous membranes HEAD & SCALP: normocephalic and atraumatic Eye: COMMON NORMALS: PERRL, EOMs intact bilaterally and conjunctivae normal CONJUNCTIVA: Yes conjunctivae normal PUPIL: Yes PERRL Neck/C-Spine: COMMON NORMALS: full ROM GENERAL: Yes normal visual inspection and Yes trachea midline Resp: COMMON NORMALS: normal respiratory effort, no retractions, no use of accessory muscles and clear to auscultation bilaterally EFFORT & INSPECTION: Yes able to speak in complete sentences, Yes symmetric chest movement and No tachypneic AUSCULTATION: clear to auscultation bilaterally Cardio: COMMON NORMALS: regular rate, regular rhythm, S1 normal heart sound, S2 normal heart sound and no murmurs RATE: regular rate RHYTHM: regular rhythm HEART SOUNDS: S1 normal and S2 normal GI: COMMON NORMALS: normal to inspection, nondistended, normoactive bowel sounds, soft to palpation and non-tender PALPATION: Yes soft Extremity: COMMON NORMALS: normal to inspection, full ROM and no clubbing, cyanosis or edema OTHER: -LUE AV fistula Neuro: COMMON NORMALS: oriented x3, moves all extremities, no focal motor deficits and no sensory deficits noted Psych: COMMON NORMALS: mental status grossly normal, thought process normal, cooperative, affect normal and speech normal SPEECH: Yes normal speech THOUGHT PROCESS: normal thought process Skin: COMMON NORMALS: no rashes or lesions noted, no jaundice, no petechiae and no mottling GENERAL SKIN EXAM: no rashes or lesions noted Urinary Catheter Management^: Eduardo: Cath Placed During This Visit: no Reason for Continuing Indwelling Catheter: Chronic Indwelling Urinary Catheter on Admission Data : 08/06/19 05:02 08/06/19 05:02 Micro: Microbiology 08/03/19 19:34 Urine Culture - Final Urine,Clean Catch Escherichia coli 08/04/19 00:17 Blood Culture - Preliminary Blood NEGATIVE TO DATE A&P Assessment and plan (1) Clostridioides difficile infection: -found to be positive for C.difficile and Norovirus -continue oral vancomycin (day 3) though has been reluctant to take it as he feels fine -contact isolation precautions -noted evidence of mild enteritis and mild diffuse colitis on imaging, no abscess or free air noted -has been afebrile, leukocytosis continues to decrease, has less frequent and more solid BMs, off flagyl Status: Acute (2) Acute UTI: -UA strongly indicative of infection (+pyuria/bacteria/LE) -urine [id number] E.coli -blood cx: prelim negative -continue Ceftriaxone -[facility] Eduardo [facility] Status: Acute (3) Chronic renal disease: -patient has known ESRD on HD (MWF), access is LUE AV fistula -Nephrology consult appreciated -renally dose meds, avoid nephrotoxins -has solitary R kidney Status: Chronic Qualifiers: Chronic kidney disease stage: stage 4 (severe) Qualified Code(s): N18.4 - Chronic kidney disease, stage 4 (severe) Additional A&P Information -Advanced age -has known acute on chronic macrocytic anemia; baseline Hg unknown; continue to monitor H/H -prior hx of RCC s/p L nephrectomy -hx of cardiomyopathy -anemia of chronic disease, baseline Hg unknown;gradually trending down, will need transfusion of blood products today due to continued drop; order 2 units PRBCs. Continue to trend H/H closely -renal diet as tolerated -DVT ppx with SCDs, no AC due to anemia -Dispo: NH ([facility] [place]) -Code status: DNR/DNI Attestations Medical Necessity Statement*: Patient requires hospitalization for continued UTI and C.diffcile colitis treatment and transfusion of blood products given worsening anemia. Time Spent in Patient Care: 16 - 35 minutes (>than 50% of time spent in counselling and/or direct pt care on unit). Coding Level of Care Code Acute Shipping Services Sales Representative for Chg Fwd Exam Comprehensive Diagnoses Clostridioides difficile infection A49.8 Acute UTI N39.0 Chronic renal disease N18.4 Chronic kidney disease stage: stage 4 (severe)
--- NOTE | 2019-08-06 11:29 | PC.NURSE ---
Patient to dialysis at this time. Patient will need to receive blood while in dialysis today.
--- NOTE | 2019-08-06 11:39 | P.PN_ITS ---
Subjective Subjective: Interval history: Feels good, keen to go home. Diarrhea is now resolving. Pending dialysis today. Eduardo in. Vitals reviewed, remain stable. No edema and no uremic Sx. No fevers, chills etc Medications: Reviewed: Yes Medication Review Details: Active Medications Generic Name Dose Route Start Last Admin Trade Name Freq PRN Reason Stop Dose Admin Ceftriaxone Sodium 1,000 mg/ 50 mls @ 100 mls/ hr 08/04/19 09:00 08/06/19 09:44 Sodium Chloride IV 100 mls/hr DAILY CLAUDIA Administration Protocol Sodium Chloride 1,000 mls @ 30 ml s/hr 08/04/19 00:06 08/06/19 09:44 Sodium Chloride 0.9% IV 30 mls/hr .Q24H CLAUDIA Administration Midodrine 10 mg 08/04/19 09:00 08/06/19 09:43 Proamatine PO 10 mg TID CLAUDIA Administration Ondansetron HCl 4 mg 08/05/19 07:46 Zofran IVP Q6H PRN NAUSEA AND VOMITI NG Vancomycin HCl 250 mg 08/04/19 09:00 08/06/19 09:45 Vancocin PO Not Given QID CLAUDIA hydrocodone Allergy (Verified 08/03/19 17:06) Unknown oxycodone Allergy (Verified 08/03/19 17:06) Unknown Vitals/I&O/Wt Last Vital Signs Temp 97.6 F 08/06/19 08:00 Pulse 80 08/06/19 08:00 Resp 18 08/06/19 08:00 BP 154/63 08/06/19 08:00 Pulse Ox 98 08/06/19 08:00 08/05/19 08/06/19 08/06/19 22:59 06:59 14:59 Intake Total 340 / 1602.5 1000.5 / 1000.5 Output Total 650 / 650 1500 / 2150 200 / 200 Balance -310 / 952.5 -1500 / -547.5 800.5 / 800.5 Physical Exam Narrative: EXAM NARRATIVE: This is a very pleasant male He sitting in the bed without any active distress able to give me all the details of mentioned above S1, S2 no tachycardia or signs of heart failure, clinically looks dehydrated Abdomen soft nontender nondistended bowel sound present Lungs are clear to auscultation Neurologically nonfocal exam Eduardo catheter draining cloudy yellow urine EOMI, PERRLA Appropriate mood and affect No ischemia gangrene ulcer of lower extremity Clinically dehydrated Const: COMMON NORMALS: no apparent distress, average body habitus and oriented x3 HENMT: COMMON NORMALS: normocephalic HEAD & SCALP: normal to inspection and normocephalic FACE & SINUS: normal facial exam Eye: COMMON NORMALS: conjunctivae normal GENERAL EYE: normal appearance of both eyes CONJUNCTIVA: Yes conjunctivae normal Neck/C-Spine: COMMON NORMALS: no JVD Chest: COMMONS NORMALS: inspection of chest normal Resp: COMMON NORMALS: normal respiratory effort and clear to auscultation bilaterally AUSCULTATION: clear to auscultation bilaterally Cardio: COMMON NORMALS: no JVD, regular rate and regular rhythm RATE: regular rate RHYTHM: regular rhythm GI: COMMON NORMALS: normal to inspection, nondistended, normoactive bowel sounds : BLADDER/KIDNEY EXAM: Yes other (Eduardo is in place) Extremity: COMMON NORMALS: normal to inspection and full ROM Neuro: COMMON NORMALS: oriented x3 Skin: COMMON NORMALS: negative for skin turgor normal (Poor turgor) GENERAL SKIN EXAM: abnormal elasticity and decreased turgor (Poor turgor) Urinary Catheter Management^: Eduardo: Cath Placed During This Visit: no Reason for Continuing Indwelling Catheter: Chronic Indwelling Urinary Catheter on Admission Data : 08/06/19 05:02 08/06/19 05:02 Micro: Microbiology 08/03/19 19:34 Urine Culture - Final Urine,Clean Catch Escherichia coli 08/04/19 00:17 Blood Culture - Preliminary Blood NEGATIVE TO DATE A&P Additional A&P Information 1. ESRD - for HD today pending, 3.5hrs, 3K, no UF - dose meds for eGFR < 15 on dialysis - cont MWF schedule 2. Diarrhea and ID issues - CDiff r/o, on oral Vanco - Mgmt per primary team - resolving now - good oral intake - UTI being treated with Rocephin, EColi 3. Hemodynamics stable 4. Anemia of ESRD - Hb dropping, for 2 units of PRBCs, we can give easily with dialysis - EPO x 1 today also - Dc planning per Dr Sauceda - thanks, will follow Attestations Medical Necessity Statement*: eval for ESRD mgmt Coding Level of Care Code Acute Director Of Software Development for Chg Fwd
--- NOTE | 2019-08-06 12:47 | PC.NURSE ---
First unit of blood transfusion started at 12:47. It will be given during dialysis. Patient tolerating well.
--- NOTE | 2019-08-06 13:30 | PC.NURSE ---
1st unit of blood transfused. No reactions noted.
--- NOTE | 2019-08-06 17:08 | PC.NURSE ---
Report to Ann LAWLER at this time.
[2019-08-06] MEDS: epoetin alfa 10,000 unit/mL INJ 10000 UNIT SUBCUT (17:26)
[2019-08-06 18:46] LABS: Hematocrit 28.3 % (42.0-52.0); Hemoglobin 8.6 g/dL (11.7-16.6)
[2019-08-06] MEDS: TRAMadol 50 mg Tablet PO (21:29)
[2019-08-07] VITALS: BP 153/58; PULSE 72; RESP 24; TEMP 36.8; O2SAT 86
[2019-08-07] MEDS: sodium chloride 0.9% 1,000 ML 30 ML IV (01:55)
[2019-08-07 04:00] VITALS: BP 154/62; PULSE 70; RESP 20; TEMP 36.4; O2SAT 85
[2019-08-07 05:28] LABS: Basophils % 0.1 %; Eosinophils % 0.1 %; Hematocrit 27.7 % (42.0-52.0); Hemoglobin 8.5 g/dL (11.7-16.6); Lymphocytes # 0.5 10^3/uL (0.8-4.8); Lymphocytes % 5.5 %; Mean Corpuscular HGB Conc 30.7 g/dL (30.0-36.0); Mean Corpuscular Hemoglobin 31.1 pg (28.0-34.0); Mean Corpuscular Volume 101.5 fL (80-94); Mean Platelet Volume 13.4 fL (7.4-10.4); Monocytes # 3.8 10^3/uL (0.2-0.9); Monocytes % 46.5 %; Neutrophils # 3.7 10^3/uL (1.8-7.7); Neutrophils % 44.9 %; Nucleated Red Blood Cells % 0 %; Platelet Count 186 10^3/cmm (130-400); Red Blood Count 2.73 10^6/uL (4.1-5.3); Red Cell Distribution Width 21.9 % (12.1-15.1); White Blood Count 8.2 10^3/uL (4.0-10.0)
[2019-08-07 05:53] LABS: Slide Review Slide Review Perform
--- NOTE | 2019-08-07 07:37 | P.DS_ITS ---
Discharge Providers Date of Admission: 08/03/19 22:37 Date of Discharge: August 07, 2019 Attending Provider at Admission: Ralph Stanley MD Attending Provider at Discharge: Татьяна Sauceda MD Diagnoses at Discharge Discharge Diagnosis (1) Clostridioides difficile infection: Status: Acute Problem details: -found to be positive for C.difficile and Norovirus -continue oral vancomycin (day 410) though has been reluctant to take it as he feels fine -contact isolation precautions -noted evidence of mild enteritis and mild diffuse colitis on imaging, no abscess or free air noted -has been afebrile, leukocytosis continues to decrease, has less frequent and more solid BMs, off flagyl (2) Acute UTI: Status: Acute Problem details: -UA strongly indicative of infection (+pyuria/bacteria/LE) -urine up-xlb-hzzyffcwn E.coli -blood cx: prelim negative -continue Ceftriaxone -had Eduardo catheter placed at [facility] due to urinary frequency; discontinue per patient request (3) Chronic renal disease: Status: Chronic Problem details: -patient has known ESRD on HD (MWF), access is LUE AV fistula -Nephrology consult appreciated -renally dose meds, avoid nephrotoxins -has solitary R kidney Qualifiers: Chronic kidney disease stage: stage 4 (severe) Qualified Code(s): N18.4 - Chronic kidney disease, stage 4 (severe) Other Information Additional DC diagnoses/information: -Advanced age -has known acute on chronic macrocytic anemia; baseline Hg unknown; continue to monitor H/H -prior hx of RCC s/p L nephrectomy -hx of cardiomyopathy -anemia of chronic disease, baseline Hg unknown; s/p 2 units PRBCs and dose of EPO. Hg today-8.5 Reason for Visit Reason for Visit: Reason For Visit: CDIFF AND ECOLI; WEAKNESS Hospital Course Hospital Course: Patient was admitted to medical surgical floor and started on dual antibiotic treatment secondary to severe leukocytosis and on C. difficile colitis, UTI and norovirus. He had been seen at the [facility] then transferred to our facility due to need for hemodialysis as he has a history of ESRD. With improving leukocytosis and decreased diarrhea Flagyl was discontinued and he is to continue oral vancomycin to complete a 10-day course. He has been on contact isolation precautions due to C. difficile. He has received hemodialysis per his schedule of Sunday, Sunday, Sunday with nephrology on consult. He developed worsening anemia during his hospital course and required transfusion of 2 units of PRBCs as well as a dose of EPO. Most recent hemoglobin is 8.5; he will need continued follow up on hemoglobin and may benefit from further workup as degree of anemia does not correlate entirely with ESRD. He will be due for dialysis tomorrow. He has been afebrile and hemodynamically stable, ambulatory, had good oral intake. He presented to our facility with a Eduardo catheter that had been placed at [facility] which per his request has been discontinued prior to discharge. Urine culture grew jimenez-sensitive E.coli, and he will be continued on 7 more days of cefuroxime per sensitivity profile. 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 Contact precautions should continue until completion of antibiotic course for treatment of C. dif ficile. Discharge Summary: -Patient to follow up with primary care physician Dr. Syed per [facility] or within 1 week -Patient to continue HD per [facility] schedule Physical Exam Const: COMMON NORMALS: no apparent distress and oriented x3 GENERAL APPEARANCE: cooperative and comfortable ORIENTATION/CONSCIOUSNESS: Yes awake HENMT: COMMON NORMALS: normocephalic, head/scalp atraumatic, hearing grossly normal bilaterally and moist oral mucous membranes HEAD & SCALP: normocephalic and atraumatic Eye: COMMON NORMALS: PERRL, EOMs intact bilaterally and conjunctivae normal CONJUNCTIVA: Yes conjunctivae normal PUPIL: Yes PERRL Neck/C-Spine: COMMON NORMALS: full ROM GENERAL: Yes normal visual inspection and Yes trachea midline Resp: COMMON NORMALS: normal respiratory effort, no retractions, no use of accessory muscles and clear to auscultation bilaterally EFFORT & INSPECTION: Yes able to speak in complete sentences, Yes symmetric chest movement and No tachypneic AUSCULTATION: clear to auscultation bilaterally Cardio: COMMON NORMALS: regular rate, regular rhythm, S1 normal heart sound, S2 normal heart sound and no murmurs RATE: regular rate RHYTHM: regular rhythm HEART SOUNDS: S1 normal and S2 normal GI: COMMON NORMALS: normal to inspection, nondistended, normoactive bowel sounds, soft to palpation and non-tender PALPATION: Yes soft Extremity: COMMON NORMALS: normal to inspection, full ROM and no clubbing, cyanosis or edema OTHER: -LUE AV fistula Neuro: COMMON NORMALS: oriented x3, moves all extremities, no focal motor deficits and no sensory deficits noted Psych: COMMON NORMALS: mental status grossly normal, thought process normal, cooperative, affect normal and speech normal SPEECH: Yes normal speech THOUGHT PROCESS: normal thought process Skin: COMMON NORMALS: no rashes or lesions noted, no jaundice, no petechiae and no mottling GENERAL SKIN EXAM: no rashes or lesions noted Urinary Catheter Management^: Eduardo: Cath Placed During This Visit: no Reason for Continuing Indwelling Catheter: Chronic Indwelling Urinary Catheter on Admission Discharge Data Data Completed and Pending: Completed Studies During Hospitalization Category Date Time Status CT abdomen pelvis wo con [id number] Urge nt Cat Scan 08/03/19 19:17 Completed XR chest 1V marcos ble [id number] Stat Exams 08/03/19 19:04 Completed Pending at discharge Category Date Time Status Blood Culture Sta t Lab 08/04/19 00:17 Results Labs from last 24 hours 08/07/19 08/06/19 08/06/19 05:18 18:24 11:27 WBC 8.2 RBC 2.73 L Hgb 8.5 L 8.6 L Hct 27.7 L 28.3 L MCV 101.5 H MCH 31.1 MCHC 30.7 RDW 21.9 H Plt Count 186 MPV 13.4 H Neut % (Auto) 44.9 Lymph % (Auto) 5.5 [place] % (Auto) 46.5 Eos % (Auto) 0.1 Baso % (Auto) 0.1 Neut # (Auto) 3.7 Lymph # (Auto) 0.5 L [place] # (Auto) 3.8 H Eos # (Auto) 0.0 Baso # (Auto) 0.0 Nucleated RBC % (a uto) 0 Nucleated RBCs # 0.0 Blood Type A Positive Rho(D) Type Positive Antibody Screen Negative Crossmatch See Detail Vitals: Last Vital Signs Temp 97.6 F 08/07/19 04:00 Pulse 70 08/07/19 04:00 Resp 20 H 08/07/19 04:00 BP 154/62 08/07/19 04:00 Pulse Ox 85 L 08/07/19 04:00 Discharge Plan Discharge Patient Disposition: Xfer [facility] Condition: Stable Prescriptions: New vancomycin 250 mg capsule 250 mg PO QID 7 Days Qty: 28 RF: 0 cefuroxime axetil 250 mg tablet 250 mg PO BID 7 Days Qty: 14 RF: 0 Continued Zofran 4 mg Tablet 4 mg PO Q6H PRN (Reason: Nausea) RF: 0 Milk of Magnesia 400 mg/5 mL Suspension 30 ml PO DAILY PRN (Reason: Constipation) RF: 0 Dulcolax (bisacodyl) 10 mg Suppository 10 mg [place] DAILY PRN (Reason: Constipation) RF: 0 Protonix 40 mg Tablet,Delayed Release (Dr/Ec) 40 mg PO DAILY RF: 0 Benadryl Allergy 25 mg Tablet 25 mg PO Q6H PRN (Reason: Insomnia) RF: 0 magnesium citrate Solution 150 ml PO DAILY PRN (Reason: Constipation) RF: 0 Dulcolax (bisacodyl) 5 mg Tablet,Delayed Release (Dr/Ec) 5 mg PO DAILY PRN (Reason: Constipation) RF: 0 Claritin 10 mg Tablet 10 mg PO DAILY RF: 0 Mylanta Maximum Strength 400-400-40 mg/5 mL Suspension 30 ml PO TID PRN (Reason: Acid Reflux) RF: 0 Robitussin Cough and Cold CF 2.5-5-50 mg/5 mL Liquid 15 ml PO Q4H PRN (Reason: Cough) RF: 0 midodrine 10 mg Tablet 10 mg PO TID RF: 0 RenaPlex-D 800 mcg-12.5 mg -2,000 unit Tablet 1 tab PO DAILY RF: 0 Discontinued midodrine 5 mg Tablet 5 mg PO QMWF RF: 0 omeprazole 20 mg Capsule,Delayed Release(Dr/Ec) 20 mg PO DAILY RF: 0 Discharge Orders: Discharge Order (Routine); Ordered 08/07/19 Ordered By: Татьяна Sauceda Referrals: Ryan Syed [Other] - 4-7 days (Post hospital discharge follow up) Discharge Diet: Usual diet Discharge Activity: Resume usual activity Discharge Attestations Time Spent in Discharge Care*: greater than 30 min Specific Discharge Activities: Specific discharge activities: educating patient, discussing with correctional casework specialist/social workers/dc planners, documenting/other paperwork and evaluating patient/reviewing data Status at Discharge: Cognitive status at discharge: cognitively intact , Behavioral status at discharge: cooperative , Functional status at discharge: independent ambulation Overall status at discharge: patient is back to baseline Quality Metrics Clinical Quality Measures During this hospital stay, did patient experience: None Coding Level of Care Code Acute Health Plan Manager for Chg Fwd Diagnoses Clostridioides difficile infection A49.8 Acute UTI N39.0 Chronic renal disease N18.4 Chronic kidney disease stage: stage 4 (severe)
[2019-08-07 07:38] VITALS: BP 161/66; PULSE 72; RESP 18; TEMP 36.8; O2SAT 94
[2019-08-07 07:43] VITALS: BP 161/66; PULSE 72; RESP 18; TEMP 36.8; O2SAT 94
[2019-08-07] MEDS: midodrine 5 mg TABLET 10 MG PO (08:13)
[2019-08-07] MEDS: cefTRIAXone 1,000 MG in sodium chloride 0.9% (plus) 50 ML 100 MG IV (08:13)
== END 2019-08-07 14:56 | disposition skilled nursing facility (03) | DRG 371 ==
LOC: ER 22:26 → MEDSURG 23:05
PROVIDERS: Admitting Provider Internal Medicine; Emergency Provider Nurse Practitioner Family; Visit Provider Family Medicine
DX: A04.72 Enterocolitis due to Clostridium difficile, not specified as recurrent (principal); N18.6 End stage renal disease; N39.0 Urinary tract infection, site not specified; A08.11 Acute gastroenteropathy due to Norwalk agent; Z99.2 Dependence on renal dialysis; Q27.33 Arteriovenous malformation of digestive system vessel; D63.1 Anemia in chronic kidney disease; Z66 Do not resuscitate; H40.9 Unspecified glaucoma; I34.0 Nonrheumatic mitral (valve) insufficiency; I25.2 Old myocardial infarction; Z85.46 Personal history of malignant neoplasm of prostate; Z92.3 Personal history of irradiation; Z87.440 Personal history of urinary (tract) infections; Z85.528 Personal history of other malignant neoplasm of kidney; Z90.5 Acquired absence of kidney; B96.20 Unspecified Escherichia coli [E. coli] as the cause of diseases classified elsewhere
CPT/HCPCS: 12345; 36415; 36430; 71045; 74176; 80048; 80053; 81001; 83605; 85014; 85018; 85025; 86850; 86900; 86920; 87040; 87077; 87086; 87186; 90935; 96372; 99283; J0696; J3370; J7030; P9016; Q3014; Q4081; S0030

== ENCOUNTER 2020-01-12 21:12 | Inpatient (IN) | payer MEDICARE, BC, SELFPAY ==
--- NOTE | 2020-01-12 21:19 | XR_ITS ---
WS: [id number] CHEST XRAY TECHNIQUE: Portable chest. CLINICAL INFORMATION: COVID COMPARISON: None. FINDINGS: Heart: Normal cardiac silhouette. Left axillary vascular stent Lungs: Moderate chronic emphysematous changes. Slight patchy infiltrates in the left midlung, left lo wer lobe, and right lower lobe. Interstitial thickening in the mid and lower lungs. No focal consolid ation or pleural fluid. Bones: Normal visualized bony structures. XR/XR chest 1V portable [id number] IMPRESSION: 1. Slight hazy infiltrates in the left midlung left lower lobe and right lower lobe. Interstitial thickening in the mid and lower lungs. 2. No focal consolidation aor pleural fluid.
--- NOTE | 2020-01-12 21:20 | ECG_ITS ---
[facility] Test Date: 2020-01-12 Pat Name: Lisa Cabrera Department: Room: Gender: Male [employer] Whacker: : 1935 Requested By: Orquidea Bowser Order Number: [id number] Chrissy MD: Conor Vásquez M.D. Measurements Intervals [place] Rate: 87 P: 63 ID: [id number] QRS: -34 QRSD: 104 T: 73 QT: 397 QTc: 478 Interpretive Statements SINUS RHYTHM LEFT AXIS DEVIATION [QRS AXIS < -30] NONSPECIFIC T-WAVE ABNORMALITY No previous ECG available for comparison Electronically Signed On 01-13-2020 18:26:28 CDT by Conor Vásquez M.D. [email or web address]
[2020-01-12 21:24] VITALS: BP 166/56; PULSE 88; RESP 22; TEMP 36.9; O2SAT 94; BMI 26.5
--- NOTE | 2020-01-12 21:42 | ED_ITS ---
Documented by User: Orquidea De La Vega MD 01/19/20 19:04 HPI - SOB/Dyspnea General: Chief Complaint: Shortness of Breath/Dyspnea Stated Complaint: Weakness, Hypoxia, COVID + Time Seen by Provider: 01/12/20 21:15 History of Present Illness: HPI Narrative: This patient is an 84-year-old male who presents today with a complaint that his legs are weak and his knees give out. He really cannot provide much more history than that I am not sure what his baseline mental status is. He came in by EMS and apparently has a positive COVID test although I do not know when or where that was done. The patient cannot tell me. He is a dialysis patient with a fistula in the left arm. He cannot tell me when his last dialysis was. He denies shortness of breath or cough. He denies fever. I am not sure how reliable this history is. Per report from EMS in the dialysis unit the, the patient was actually sent from dialysis [facility]. He has been having some weakness since last and was tested for COVID the next day, Sunday the . He had a positive result. Apparently he lives in a correction in [place]. Per dialysis he was running room air saturations in the 80s. 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 Chronic anemia Clostridioides difficile infection -found to be positive for C.difficile and Norovirus 08/10 Dieulafoy lesion (hemorrhagic) of intestine DNR (do not resuscitate) End stage renal disease GI bleed Due to dieulafoy lesion, AVM Glaucoma Metabolic encephalopathy Mitral valve regurgitation NSTEMI (non-ST elevated myocardial infarction) Prostate cancer s/p cryotherapy Recurrent UTI Renal cell carcinoma Left-sided Small bowel obstruction Takotsubo cardiomyopathy Thrombocytopenia Surgical History H/O colectomy 7 inches removed H/O inguinal hernia repair H/O nasal septoplasty History of nephrectomy Left-sided S/P colonoscopic polypectomy Family History Denies family history of Clotting disorder Dementia Social History Smoking and tobacco status: never smoked Alcohol intake: never Housing: Residential Physical Exam Const: COMMON NORMALS: no acute distress and alert GENERAL APPEARANCE: cooperative ORIENTATION/CONSCIOUSNESS: Yes oriented to person; not oriented to place and not oriented to time HENMT: HEAD & SCALP: normal to inspection FACE & SINUS: normal facial exam Eye: GENERAL EYE: appearance normal, both eyes and all related structures Neck/C-Spine: COMMON NORMALS: supple, no meningeal signs and no JVD Chest: COMMONS NORMALS: normal inspection of the chest Resp: COMMON NORMALS: normal respiratory effort, No use of accessory muscles and clear to auscultation bilaterally AUSCULTATION: clear to auscultation bilaterally Cardio: COMMON NORMALS: no JVD, regular rate, regular rhythm and No murmurs present (Cardio) RATE: regular rate RHYTHM: regular rhythm GI: COMMON NORMALS: Normal to inspection, nondistended, normoactive bowel sounds present, Soft to palpation and non-tender INSPECTION: Yes normal to inspection AUSCULTATION: Yes normoactive bowel sounds PALPATION: Yes Soft to palpation Back/Pelvis: COMMON NORMALS: thoracic and lumbar spine normal to inspection Extremity: COMMON NORMALS: normal to inspection Neuro: COMMON NORMALS: moves all extremities, no focal motor deficits and no sensory deficits noted SENSORIUM/ORIENTATION: Yes alert, Yes oriented to person, No oriented to place and No oriented to time MENINGEAL SIGNS: Yes no meningeal signs Psych: COMMON NORMALS: mental status grossly normal, cooperative and normal affect Skin: COMMON NORMALS: no rashes or lesions noted and turgor normal GENERAL SKIN EXAM: no rashes or lesions noted and turgor normal Course Vital Signs: Vital signs: Vital Signs Temperature 98.4 F 01/14/20 14:30 Pulse Rate 70 01/14/20 15:00 Respiratory Rate 13 01/14/20 15:00 Blood Pressure 154/63 01/14/20 15:00 Pulse Oximetry 94 01/14/20 14:30 MDM - SOB/Dyspnea Lab Data: Labs: Lab Results 01/12/20 01/12/20 01/12/20 Range/Units 22:17 22:17 22:17 WBC 4.1 (4.0-10.0) 10^3/ uL RBC 2.76 L (4.1-5.3) 10^6/u L Hgb 9.6 L (11.7-16.6) g/dL Hct 30.8 L (42.0-52.0) % MCV 111.6 H (80-94) fL MCH 34.8 H (28.0-34.0) pg MCHC 31.2 (30.0-36.0) g/dL RDW 18.7 H (12.1-15.1) % Plt Count 139 (130-400) 10^3/c mm MPV 13.2 H (7.4-10.4) fL Neut % (Auto) 20.1 % Lymph % (Auto) 7.8 % [place] % (Auto) 68.5 % Eos % (Auto) 0.0 % Baso % (Auto) 0.2 % Neut # (Auto) 0.82 L* (1.8-7.7) 10^3/u L Lymph # (Auto) 0.3 L (0.8-4.8) 10^3/u L [place] # (Auto) 2.8 H (0.2-0.9) 10^3/u L Eos # (Auto) 0.0 (0.0-0.8) 10^3/u L Baso # (Auto) 0.0 (0.0-0.1) 10^3/u L Nucleated RBC % (a uto) 0 % Nucleated RBCs # 0.0 /100WBC PT 15.20 H (12.1-14.9) SECO NDS INR 1.16 (0.8-1.2) D-Dimer 1.13 H (0-0.59) ug/mIFE U Sodium Cancelled Potassium Cancelled Chloride Cancelled Carbon Dioxide Cancelled Anion Gap Cancelled BUN Cancelled Creatinine Cancelled GFR Calculation Cancelled Glucose Cancelled Calculated Osmolal ity Cancelled Lactic Acid Calcium Cancelled Total Bilirubin Cancelled AST Cancelled ALT Cancelled Alkaline Phosphata se Cancelled Troponin T Baselin e C-Reactive Protein Cancelled NT-Pro-B Natriuret Pep Cancelled Total Protein Cancelled Albumin Cancelled Globulin Cancelled Procalcitonin Cancelled 01/12/20 01/12/20 01/12/20 Range/Units 22:17 22:17 23:22 WBC (4.0-10.0) 10^3/ uL RBC (4.1-5.3) 10^6/u L Hgb (11.7-16.6) g/dL Hct (42.0-52.0) % MCV (80-94) fL MCH (28.0-34.0) pg MCHC (30.0-36.0) g/dL RDW (12.1-15.1) % Plt Count (130-400) 10^3/c mm MPV (7.4-10.4) fL Neut % (Auto) % Lymph % (Auto) % [place] % (Auto) % Eos % (Auto) % Baso % (Auto) % Neut # (Auto) (1.8-7.7) 10^3/u L Lymph # (Auto) (0.8-4.8) 10^3/u L [place] # (Auto) (0.2-0.9) 10^3/u L Eos # (Auto) (0.0-0.8) 10^3/u L Baso # (Auto) (0.0-0.1) 10^3/u L Nucleated RBC % (a uto) % Nucleated RBCs # /100WBC PT (12.1-14.9) SECO NDS INR (0.8-1.2) D-Dimer (0-0.59) ug/mIFE U Sodium 136 Potassium 4.0 Chloride 94 L Carbon Dioxide 25 Anion Gap 21.0 H BUN 24 H Creatinine 4.6 H GFR Calculation Not Reportable Glucose 93 Calculated Osmolal ity 286 Lactic Acid Cancelled Calcium 8.1 L Total Bilirubin 0.9 AST 17 ALT 7 Alkaline Phosphata se 53 Troponin T Baselin e Cancelled C-Reactive Protein 25.9 H NT-Pro-B Natriuret Pep 77479 H Total Protein 8.6 Albumin 4.3 Globulin 4.3 Procalcitonin 1.25 H 01/12/20 01/12/20 Range/Units 23:22 23:22 WBC (4.0-10.0) 10^3/ uL RBC (4.1-5.3) 10^6/u L Hgb (11.7-16.6) g/dL Hct (42.0-52.0) % MCV (80-94) fL MCH (28.0-34.0) pg MCHC (30.0-36.0) g/dL RDW (12.1-15.1) % Plt Count (130-400) 10^3/c mm MPV (7.4-10.4) fL Neut % (Auto) % Lymph % (Auto) % [place] % (Auto) % Eos % (Auto) % Baso % (Auto) % Neut # (Auto) (1.8-7.7) 10^3/u L Lymph # (Auto) (0.8-4.8) 10^3/u L [place] # (Auto) (0.2-0.9) 10^3/u L Eos # (Auto) (0.0-0.8) 10^3/u L Baso # (Auto) (0.0-0.1) 10^3/u L Nucleated RBC % (a uto) % Nucleated RBCs # /100WBC PT (12.1-14.9) SECO NDS INR (0.8-1.2) D-Dimer (0-0.59) ug/mIFE U Sodium Potassium Chloride Carbon Dioxide Anion Gap BUN Creatinine GFR Calculation Glucose Calculated Osmolal ity Lactic Acid 0.9 Calcium Total Bilirubin AST ALT Alkaline Phosphata se Troponin T Baselin e 42 H C-Reactive Protein NT-Pro-B Natriuret Pep Total Protein Albumin Globulin Procalcitonin Discharge Plan Discharge Patient Disposition: Admitted As Inpatient Admit Provider: Ralph Stanley Clinical Impression: COVID-19, ESRD on dialysis Condition: Stable Referrals: Ryan Syed MD [Primary Care Provider] - 2 weeks (Covid 19, incidentally noted monocytosis - follow up on flow cytometry) Discharge Diet: Usual diet and As Directed Discharge Activity: Increase activity as tolerated Patient Instructions: Levofloxacin (By mouth) Additional Instructions: Maintain isolation due to COVID-19 infection. Continue renal/hemodialysis diet. Follow-up with hemodialysis MWF at isolation dialysis unit. Resume follow-up with nephrology once off isolation. Please resume follow-up with remediation bioanalytics consultant/oncologist after of isolation. Please follow-up with heme-onc regarding flow cytometry results and monocytosis. Concern is for possible bone marrow process, not excluding MDS, but requiring additional studies. Please repeat CBC in 4 days to reassess for monocyte count, neutrophil count. Continue chemistry studies as recommended by nephrology. Currently not requiring any oxygen, but monitor oxygenation. 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 Chronic anemia Clostridioides difficile infection -found to be positive for C.difficile and Norovirus 08/10 Dieulafoy lesion (hemorrhagic) of intestine DNR (do not resuscitate) End stage renal disease GI bleed Due to dieulafoy lesion, AVM Glaucoma Metabolic encephalopathy Mitral valve regurgitation NSTEMI (non-ST elevated myocardial infarction) Prostate cancer s/p cryotherapy Recurrent UTI Renal cell carcinoma Left-sided Small bowel obstruction Takotsubo cardiomyopathy Thrombocytopenia Surgical History H/O colectomy 7 inches removed H/O inguinal hernia repair H/O nasal septoplasty History of nephrectomy Left-sided S/P colonoscopic polypectomy Family History Denies family history of Clotting disorder Dementia Social History Smoking and tobacco status: never smoked Alcohol intake: never Housing: Residential Course Vital Signs: Vital signs: Vital Signs Temperature 98.4 F 01/14/20 14:30 Pulse Rate 70 01/14/20 15:00 Respiratory Rate 13 01/14/20 15:00 Blood Pressure 154/63 01/14/20 15:00 Pulse Oximetry 94 01/14/20 14:30 MDM - SOB/Dyspnea MDM Narrative: Medical decision making narrative: Patient presents here with shortness of breath requiring increased oxygen demands. Patient has no signs of pneumonia. I spoke to hospitalist will admit to the PICU. Lab Data: Labs: Lab Results 01/12/20 01/12/20 01/12/20 Range/Units 22:17 22:17 22:17 WBC 4.1 (4.0-10.0) 10^3/ uL RBC 2.76 L (4.1-5.3) 10^6/u L Hgb 9.6 L (11.7-16.6) g/dL Hct 30.8 L (42.0-52.0) % MCV 111.6 H (80-94) fL MCH 34.8 H (28.0-34.0) pg MCHC 31.2 (30.0-36.0) g/dL RDW 18.7 H (12.1-15.1) % Plt Count 139 (130-400) 10^3/c mm MPV 13.2 H (7.4-10.4) fL Neut % (Auto) 20.1 % Lymph % (Auto) 7.8 % [place] % (Auto) 68.5 % Eos % (Auto) 0.0 % Baso % (Auto) 0.2 % Neut # (Auto) 0.82 L* (1.8-7.7) 10^3/u L Lymph # (Auto) 0.3 L (0.8-4.8) 10^3/u L [place] # (Auto) 2.8 H (0.2-0.9) 10^3/u L Eos # (Auto) 0.0 (0.0-0.8) 10^3/u L Baso # (Auto) 0.0 (0.0-0.1) 10^3/u L Nucleated RBC % (a uto) 0 % Nucleated RBCs # 0.0 /100WBC PT 15.20 H (12.1-14.9) SECO NDS INR 1.16 (0.8-1.2) D-Dimer 1.13 H (0-0.59) ug/mIFE U Sodium Cancelled Potassium Cancelled Chloride Cancelled Carbon Dioxide Cancelled Anion Gap Cancelled BUN Cancelled Creatinine Cancelled GFR Calculation Cancelled Glucose Cancelled Calculated Osmolal ity Cancelled Lactic Acid Calcium Cancelled Total Bilirubin Cancelled AST Cancelled ALT Cancelled Alkaline Phosphata se Cancelled Troponin T Baselin e C-Reactive Protein Cancelled NT-Pro-B Natriuret Pep Cancelled Total Protein Cancelled Albumin Cancelled Globulin Cancelled Procalcitonin Cancelled 01/12/20 01/12/20 01/12/20 Range/Units 22:17 22:17 23:22 WBC (4.0-10.0) 10^3/ uL RBC (4.1-5.3) 10^6/u L Hgb (11.7-16.6) g/dL Hct (42.0-52.0) % MCV (80-94) fL MCH (28.0-34.0) pg MCHC (30.0-36.0) g/dL RDW (12.1-15.1) % Plt Count (130-400) 10^3/c mm MPV (7.4-10.4) fL Neut % (Auto) % Lymph % (Auto) % [place] % (Auto) % Eos % (Auto) % Baso % (Auto) % Neut # (Auto) (1.8-7.7) 10^3/u L Lymph # (Auto) (0.8-4.8) 10^3/u L [place] # (Auto) (0.2-0.9) 10^3/u L Eos # (Auto) (0.0-0.8) 10^3/u L Baso # (Auto) (0.0-0.1) 10^3/u L Nucleated RBC % (a uto) % Nucleated RBCs # /100WBC PT (12.1-14.9) SECO NDS INR (0.8-1.2) D-Dimer (0-0.59) ug/mIFE U Sodium 136 Potassium 4.0 Chloride 94 L Carbon Dioxide 25 Anion Gap 21.0 H BUN 24 H Creatinine 4.6 H GFR Calculation Not Reportable Glucose 93 Calculated Osmolal ity 286 Lactic Acid Cancelled Calcium 8.1 L Total Bilirubin 0.9 AST 17 ALT 7 Alkaline Phosphata se 53 Troponin T Baselin e Cancelled C-Reactive Protein 25.9 H NT-Pro-B Natriuret Pep 28988 H Total Protein 8.6 Albumin 4.3 Globulin 4.3 Procalcitonin 1.25 H 01/12/20 01/12/20 Range/Units 23:22 23:22 WBC (4.0-10.0) 10^3/ uL RBC (4.1-5.3) 10^6/u L Hgb (11.7-16.6) g/dL Hct (42.0-52.0) % MCV (80-94) fL MCH (28.0-34.0) pg MCHC (30.0-36.0) g/dL RDW (12.1-15.1) % Plt Count (130-400) 10^3/c mm MPV (7.4-10.4) fL Neut % (Auto) % Lymph % (Auto) % [place] % (Auto) % Eos % (Auto) % Baso % (Auto) % Neut # (Auto) (1.8-7.7) 10^3/u L Lymph # (Auto) (0.8-4.8) 10^3/u L [place] # (Auto) (0.2-0.9) 10^3/u L Eos # (Auto) (0.0-0.8) 10^3/u L Baso # (Auto) (0.0-0.1) 10^3/u L Nucleated RBC % (a uto) % Nucleated RBCs # /100WBC PT (12.1-14.9) SECO NDS INR (0.8-1.2) D-Dimer (0-0.59) ug/mIFE U Sodium Potassium Chloride Carbon Dioxide Anion Gap BUN Creatinine GFR Calculation Glucose Calculated Osmolal ity Lactic Acid 0.9 Calcium Total Bilirubin AST ALT Alkaline Phosphata se Troponin T Baselin e 42 H C-Reactive Protein NT-Pro-B Natriuret Pep Total Protein Albumin Globulin Procalcitonin Discharge Plan Discharge Patient Disposition: Admitted As Inpatient Admit Provider: Ralph Stanley Clinical Impression: COVID-19, ESRD on dialysis Condition: Stable Referrals: Ryan Syed MD [Primary Care Provider] - 2 weeks (Covid 19, incidentally noted monocytosis - follow up on flow cytometry) Discharge Diet: Usual diet and As Directed Discharge Activity: Increase activity as tolerated Patient Instructions: Levofloxacin (By mouth) Additional Instructions: Maintain isolation due to COVID-19 infection. Continue renal/hemodialysis diet. Follow-up with hemodialysis MWF at isolation dialysis unit. Resume follow-up with nephrology once off isolation. Please resume follow-up with remediation bioanalytics consultant/oncologist after of isolation. Please follow-up with heme-onc regarding flow cytometry results and monocytosis. Concern is for possible bone marrow process, not excluding MDS, but requiring additional studies. Please repeat CBC in 4 days to reassess for monocyte count, neutrophil count. Continue chemistry studies as recommended by nephrology. Currently not requiring any oxygen, but monitor oxygenation. Discharge Date/Time: 01/13/20 02:37 Coding Level of Care Code ED General Operations Manager for [facility] Fwd Exam Comprehensive
[2020-01-12 22:24] VITALS: BP 147/63; PULSE 87; RESP 21; O2SAT 91
[2020-01-12 22:34] LABS: Basophils % 0.2 %; Hematocrit 30.8 % (42.0-52.0); Hemoglobin 9.6 g/dL (11.7-16.6); Lymphocytes # 0.3 10^3/uL (0.8-4.8); Lymphocytes % 7.8 %; Mean Corpuscular HGB Conc 31.2 g/dL (30.0-36.0); Mean Corpuscular Hemoglobin 34.8 pg (28.0-34.0); Mean Corpuscular Volume 111.6 fL (80-94); Mean Platelet Volume 13.2 fL (7.4-10.4); Monocytes # 2.8 10^3/uL (0.2-0.9); Monocytes % 68.5 %; Neutrophils % 20.1 %; Nucleated Red Blood Cells % 0 %; Platelet Count 139 10^3/cmm (130-400); Red Blood Count 2.76 10^6/uL (4.1-5.3); Red Cell Distribution Width 18.7 % (12.1-15.1); White Blood Count 4.1 10^3/uL (4.0-10.0)
[2020-01-12 22:46] LABS: INR 1.16 (0.8-1.2)
[2020-01-12 22:49] LABS: D Dimer 1.13 ug/mIFEU (0-0.59)
[2020-01-12 23:03] LABS: Slide Review Slide Review Perform
[2020-01-12 23:04] LABS: Neutrophils # 0.82 10^3/uL (1.8-7.7)
[2020-01-12] MEDS: dexamethasone 10 mg/mL INJ IVP (23:06)
[2020-01-12 23:07] VITALS: BP 136/68; PULSE 96; RESP 15; O2SAT 93
--- NOTE | 2020-01-12 23:20 | ECG_ITS ---
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 Measurements Intervals [place] Rate: 87 P: 63 NE: 168 QRS: -34 QRSD: 104 T: 73 QT: 397 QTc: 478 Interpretive Statements SINUS RHYTHM LEFT AXIS DEVIATION [QRS AXIS < -30] NONSPECIFIC T-WAVE ABNORMALITY No previous ECG available for comparison Electronically Signed On 01-13-2020 18:34:50 CDT by Conor Vásquez M.D. [id number]
[2020-01-12 23:47] LABS: Lactic Sepsis W/Reflex 0.9 mmol/L (0.5-2.2)
[2020-01-12 23:53] LABS: Troponin(5th) Baseline 42 ng/L (0-15)
[2020-01-12 23:58] LABS: Procalcitonin 1.25 ng/mL (0-0.5)
[2020-01-13] VITALS (82 sets, daily range): BP systolic 122–167; BP diastolic 53–119; PULSE 63–89; RESP 12–33; TEMP 36.6–37.2; O2SAT 87–99
[2020-01-13 00:11] LABS: Alanine Aminotransferase 7 U/L (0-41); Albumin Level 4.3 g/dL (3.5-5.2); Alkaline Phosphatase 53 IU/L (40-130); Aspartate Amino Transferase 17 U/L (0-40); Blood Urea Nitrogen 24 mg/dL (8-23); C Reactive Protein 25.9 mg/L (0.0-4.9); Calcium 8.1 mg/dL (8.5-10.5); Carbon Dioxide 25 mmol/L (22-29); Chloride 94 mmol/L (98-107); Globulin 4.3 g/dL (1.3-4.6); Glucose 93 mg/dL (65-115); Osmolality Calculated 286 mOsm/kg (285-295); Sodium 136 mmol/L (136-145); Total Bilirubin 0.9 mg/dL (0.15-1.2); Total Protein 8.6 g/dL (6.6-8.7)
--- NOTE | 2020-01-13 00:41 | PC.NURSE ---
Called [facility] facility in [place], [place] to get patients code status, baseline mental status, and normal oxygen requirements. Talked to Sabina HUFFMAN. She stated patient is normally alert and oriented times four but has had AMS since tested positive for Covid 19. Patient is full code and is on room air in the [facility].
--- NOTE | 2020-01-13 01:47 | P.HP_ITS ---
Providers/Chief Complaint Primary Care Provider: Ryan Syed MD Chief Complaint: Weakness, Hypoxia, COVID + History of Present Illness Lisa Cabrera is a 84 year old male who carries history of end-stage renal disease, dialysis Sunday, came in today for chief complaint of presyncope, generalized weakness and hypoxia. Lately he has been feeling very weak and lethargic, he is complaining of leg pain in his knees giving up on him. He is endorsing lethargy and fatigue, does not have energy to do daily activities at the [facility]. He is not a reliable historian not able to recall events from the morning however denying fever, chest pain, shortness of breath, diarrhea. He is from [facility]. I called nursing facility who endorsed that patient was sent to the hospital from dialysis center today when he had presyncopal event after dialysis. He did not spike any temperature, no seizure- like activity was noticed. Of note, his roommate was positive for coronavirus and he is currently at [facility], Mr. boswer was tested few days ago which came back positive as well. Diagnosis in the ER revealed normal hemodynamics, neutropenia, high d-dimer, high procalcitonin level, high CRP, Hemoglobin 9.6, platelet 139, fluid overloaded BNP 30,000 Review of Systems Const: Reports: chills, body aches, change in appetite, fatigue and malaise; Denies: fever(s) Eyes: Denies: change in vision ENMT: Denies: throat pain Card: Denies: chest pain Resp: Reports: dyspnea and non-productive cough GI: Denies: abdominal pain, nausea, diarrhea or constipation : Denies: flank pain Musc: Denies: neck pain Skin/Breast: Denies: rash Neuro: Denies: headache(s) Psych: Denies: anxiety Endo: Denies: polyuria [place]/Lymph: Denies: easy bruising All/Imm: Denies: urticaria Medications/Allergies Home Medications Medication Instructions Recorded Confirmed Last Taken Type Benadryl Allergy 25 mg PO Q6H PRN 08/03/19 08/03/19 Unknown History Claritin 10 mg PO DAILY 08/03/19 08/03/19 08/03/19 History Dulcolax (bisacodyl) 5 mg PO DAILY PRN 08/03/19 08/03/19 Unknown History Dulcolax (bisacodyl) 10 mg DC DAILY PRN 08/03/19 08/03/19 Unknown History Milk of Magnesia 30 ml PO DAILY PRN 08/03/19 08/03/19 Unknown History Mylanta Maximum Strength 30 ml PO TID PRN 08/03/19 08/03/19 08/01/19 History Protonix 40 mg PO DAILY 08/03/19 08/03/19 08/03/19 History RenaPlex-D 1 tab PO DAILY 08/03/19 08/03/19 08/03/19 History Robitussin Cough and Cold CF 15 ml PO Q4H PRN 08/03/19 08/03/19 Unknown History Zofran 4 mg PO Q6H PRN 08/03/19 08/03/19 Unknown History magnesium citrate 150 ml PO DAILY PRN 08/03/19 08/03/19 Unknown History midodrine 10 mg PO TID 08/03/19 08/03/19 08/03/19 History Allergies Allergy/AdvReac Type Severity Reaction Status Date / Time hydrocodone Allergy Unknown Verified 08/03/19 17:06 oxycodone Allergy Unknown Verified 08/03/19 17:06 PFSH Acute PFSH: Medical History 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 Chronic anemia Clostridioides difficile infection -found to be positive for C.difficile and Norovirus 08/10 Dieulafoy lesion (hemorrhagic) of intestine DNR (do not resuscitate) End stage renal disease GI bleed Due to dieulafoy lesion, AVM Glaucoma Metabolic encephalopathy Mitral valve regurgitation NSTEMI (non-ST elevated myocardial infarction) Prostate cancer s/p cryotherapy Recurrent UTI Renal cell carcinoma Left-sided Small bowel obstruction Takotsubo cardiomyopathy Thrombocytopenia Surgical History H/O colectomy 7 inches removed H/O inguinal hernia repair H/O nasal septoplasty History of nephrectomy Left-sided S/P colonoscopic polypectomy Family History Denies family history of Clotting disorder Dementia Social History Smoking and tobacco status: never smoked Alcohol intake: never Housing: [facility] Vitals/I&O/Wt Last Vital Signs Temp 98.4 F 01/12/20 21:24 Pulse 80 01/13/20 01:00 Resp 20 H 01/13/20 01:00 BP 145/60 01/13/20 01:00 Pulse Ox 90 01/13/20 01:00 Weight last 48 hrs Weight 83.915 kg Physical Exam Narrative: EXAM NARRATIVE: elderly male Not a good historian Normal hemodynamics Currently saturating well on 2 L nasal cannula No active respiratory stress S1, S2 no tachycardia heart failure Bilateral breath sounds without adventitious rhonchi or crackles Abdomen soft nontender bowel sound present No neurological deficit Lower extremity no edema gangrene ulcer Appropriate mood and affect No petechia purpura of lower extremity Data : 01/12/20 22:17 01/12/20 23:22 A&P Assessment and plan (1) COVID-19: Status: Acute (2) ESRD on dialysis: Status: Acute Additional A&P Information SARS COVID-19 viral pneumonia High inflammatory markers noticed, patient is afebrile, I would add Levaquin because of high procalcitonin level Not a good candidate for anticoagulation secondary to GI bleed currently hemoglobin 9 which is at baseline Requiring 2 L of oxygen I would not use remdesevir in end-stage renal disease patient, however would initiate dexamethasone 6 mg I would get rapid antigen test End-stage renal disease Left upper extremity fistula Hemodialysis dependent Sunday Next session due on Sunday Renal consult Renal cell cancer status post left nephrectomy Solitary right kidney Anemia of chronic disease, required blood transfusion in the past as well Currently hglobin stable Not a candidate for anticoagulation for DVT prophylaxis, would use SCDs for now Renal dialysis diet DNR/DNI Attestations Medical Necessity Statement*: Anticipating stay in the hospital course more than 2 midnights, currently need management for COVID-19 pneumonia, comorbid conditions such as end-stage renal disease which puts him at high risk for complications Time Spent in Patient Care: (>than 50% of time spent in counselling and/or direct pt care on unit) . 50mins Coding Level of Care Code Acute Public Relations Consultant for [employer] Fwd Diagnoses COVID-19 U07.1 ESRD on dialysis N18.6; Z99.2
[2020-01-13 02:02] LABS: Troponin 5 2HR 42.83 ng/L (0-15); Troponin 5 2HR Delta 0.83 ABS# (0-10)
--- NOTE | 2020-01-13 02:40 | PC.NURSE ---
Patient brought to VICU 9 via stretcher from ER. Placed on air breaker operator, BP cuff, Pulse ox, and oxygen 2 liters via NC. Bed low position, side rales up x 3, call light in reach. Patient oriented to his room. No questions voiced. Assessment completed.
[2020-01-13] MEDS: levoFLOXacin 750 mg Tablet PO (06:45)
--- NOTE | 2020-01-13 06:58 | P.CONIM_ITS ---
Providers/Reason For Consult Consulting Physican/Specialty*: francine maher md telenephrology Reason for Consult*: ESRD care Attending Physician: Ralph Stanley MD Primary Care Provider: Ryan Syed MD History of Present Illness History of Present Illness Lisa Cabrera is a 84 year old male ESRD HD MWF. pt sent to ER yesterday after dialysis yesterday w/ presyncope. Pt was recently diagnosed w/ COVID-19. Pt is confised and not an excellent historian. He denies CP, + cough, sob, weak, poor appetite. dneis diarrhea. Review of Systems General: Reports: 10 or more systems reviewed and unremarkable except in HPI and below Narrative: weak, lethargic, confused, SOB. poor appetite. no n/v/d. Meds/Allergies Home Medications and Allergies Home Medications Medication Instructions Recorded Confirmed Last Taken Type Benadryl Allergy 25 mg PO Q6H PRN 08/03/19 08/03/19 Unknown History Claritin 10 mg PO DAILY 08/03/19 08/03/19 08/03/19 History Dulcolax (bisacodyl) 5 mg PO DAILY PRN 08/03/19 08/03/19 Unknown History Dulcolax (bisacodyl) 10 mg IN DAILY PRN 08/03/19 08/03/19 Unknown History Milk of Magnesia 30 ml PO DAILY PRN 08/03/19 08/03/19 Unknown History Mylanta Maximum Strength 30 ml PO TID PRN 08/03/19 08/03/19 08/01/19 History Protonix 40 mg PO DAILY 08/03/19 08/03/19 08/03/19 History RenaPlex-D 1 tab PO DAILY 08/03/19 08/03/19 08/03/19 History Robitussin Cough and Cold CF 15 ml PO Q4H PRN 08/03/19 08/03/19 Unknown History Zofran 4 mg PO Q6H PRN 08/03/19 08/03/19 Unknown History magnesium citrate 150 ml PO DAILY PRN 08/03/19 08/03/19 Unknown History midodrine 10 mg PO TID 08/03/19 08/03/19 08/03/19 History Allergies Allergy/AdvReac Type Severity Reaction Status Date / Time hydrocodone Allergy Unknown Verified 08/03/19 17:06 oxycodone Allergy Unknown Verified 08/03/19 17:06 PFSH Acute PFSH: Medical History 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 Chronic anemia Clostridioides difficile infection -found to be positive for C.difficile and Norovirus 08/10 Dieulafoy lesion (hemorrhagic) of intestine DNR (do not resuscitate) End stage renal disease GI bleed Due to dieulafoy lesion, AVM Glaucoma Metabolic encephalopathy Mitral valve regurgitation NSTEMI (non-ST elevated myocardial infarction) Prostate cancer s/p cryotherapy Recurrent UTI Renal cell carcinoma Left-sided Small bowel obstruction Takotsubo cardiomyopathy Thrombocytopenia Surgical History H/O colectomy 7 inches removed H/O inguinal hernia repair H/O nasal septoplasty History of nephrectomy Left-sided S/P colonoscopic polypectomy Family History Denies family history of Clotting disorder Dementia Social History Smoking and tobacco status: never smoked Alcohol intake: never Housing: Residential Vitals/I&O/Wt Last Vital Signs Temp 98.9 F 01/13/20 02:50 Pulse 65 01/13/20 06:20 Resp 15 01/13/20 06:20 BP 144/62 01/13/20 06:20 Pulse Ox 95 01/13/20 06:20 Weight last 48 hrs Weight 83.915 kg Physical Exam Narrative: EXAM NARRATIVE: elderly, sitting up, some SOB. vs noted heent- nc/at, eomi, anicteric neck supple lungs ronchi heart reg, +SILVIA abd soft, nt, nd, +BS ext no edema. LUE AVF w/ thrill and bruit neuro- a,a, o x 1-2 A&P Additional A&P Information 84 yr old man h/o nephrectomy, ESRD. recent dx of COVID-19 SARS-2 pna. 1. COVID-19 per medicine. regarding remdesivir- eGFR <30 mL/minute: Use not recommended unless potential benefit outweighs potential risk (FDA 2020a). No safety or pharmacokinetic data are available for patients with kidney impairment or who are receiving renal replacement therapies (Eckert 2020). 2. ESRD- HD MWF 3. anemia- limit epo w/ hypercoaguable state of COVID-[place] [id number]- if resp distress worsens today, consifer fluid removal w/ HD. however pt became presyncopal yesterday w/ HD Consult Attestations Medical Necessity Statement: ESRD, COVID-19, resp distress Time Spent in Patient Care: Greater than 35 minutes Coding Level of Care Code Acute Facilities Engineering Manager for Sergg Steph
[2020-01-13 07:08] LABS: Lactate Dehydrogenase 326 U/L (135-225)
[2020-01-13 07:09] LABS: Anion Gap 17.5 (5-19); Blood Urea Nitrogen 30 mg/dL (8-23); C Reactive Protein 25.8 mg/L (0.0-4.9); Carbon Dioxide 29 mmol/L (22-29); Chloride 95 mmol/L (98-107); Creatine Phosphokinase 69 U/L (39-308); Glucose 116 mg/dL (65-115); Osmolality Calculated 291 mOsm/kg (285-295); Potassium 4.5 mmol/L (3.5-5.1); Sodium 137 mmol/L (136-145)
[2020-01-13 07:28] LABS: Fibrinogen 385 mg/dL (174-498)
[2020-01-13] MEDS: midodrine 5 mg TABLET 10 MG PO ×3 (09:30→21:43)
[2020-01-13] MEDS: pantoprazole DR 40 mg Tablet PO (09:31)
[2020-01-13] MEDS: dexamethasone 4 mg Tablet 6 MG PO (09:31)
[2020-01-13 10:45] LABS: Basophils % 0.3 %; Hematocrit 31.8 % (42.0-52.0); Hemoglobin 9.7 g/dL (11.7-16.6); Lymphocytes # 0.2 10^3/uL (0.8-4.8); Lymphocytes % 6.2 %; Mean Corpuscular HGB Conc 30.5 g/dL (30.0-36.0); Mean Corpuscular Hemoglobin 34.8 pg (28.0-34.0); Monocytes # 2.5 10^3/uL (0.2-0.9); Monocytes % 67.3 %; Neutrophils % 20.3 %; Nucleated Red Blood Cells % 0 %; Platelet Count 114 10^3/cmm (130-400); Red Blood Count 2.79 10^6/uL (4.1-5.3); Red Cell Distribution Width 18.7 % (12.1-15.1); White Blood Count 3.7 10^3/uL (4.0-10.0)
[2020-01-13 10:59] LABS: Hepatitis B Surface AB 3.5 (0-8.5); Hepatitis B Surface Antigen Non-Reactive (Nonreactive); Hepatitis C Virus Antibody Non-Reactive (Nonreactive)
[2020-01-13 11:03] LABS: SARS Covid-2 Antigen Positive (Negative)
[2020-01-13 11:08] LABS: Slide Review Slide Review Perform
[2020-01-13 11:11] LABS: Neutrophils # 0.75 10^3/uL (1.8-7.7)
[2020-01-13 11:53] LABS: LAB Peripheral Smear Sent for Review
--- NOTE | 2020-01-13 12:47 | PC.NURSE ---
MD aware of neutrophil count 0.75. was at bedside when notified.
--- NOTE | 2020-01-13 18:14 | P.PN_ITS ---
Subjective Subjective: Interval history: He feels he has been doing pretty well. He was able to wean down off of oxygen. He does not feel short of breath. Denies chest pain or pressure. Says has been having little bit of swelling in his arms, but otherwise doing okay. Appetite has been decent. He has been trying to locate his misplaced bag which may have been left at the dialysis center. Vitals/I&O/Wt Last Vital Signs Temp 98.1 F 01/13/20 16:00 Pulse 88 01/13/20 17:00 Resp 19 H 01/13/20 17:00 BP 147/94 01/13/20 17:00 Pulse Ox 96 01/13/20 17:00 01/13/20 01/13/20 01/13/20 06:59 14:59 22:59 Intake Total 480 / 480 160 / 640 Output Total 300 / 300 200 / 500 Balance 180 / 180 -40 / 140 Weight last 48 hrs Weight 83.915 kg Physical Exam Const: COMMON NORMALS: no acute distress and patient oriented x3 OTHER: Elderly gentleman, awake, alert, comfortable in bed. In good spirits. HENMT: COMMON NORMALS: oropharynx normal Neck/C-Spine: COMMON NORMALS: no JVD Resp: COMMON NORMALS: normal respiratory effort and clear to auscultation bilaterally AUSCULTATION: clear to auscultation bilaterally Cardio: COMMON NORMALS: no JVD, regular rhythm, S1 normal heart sound present, S2 normal heart sound present and No murmurs present (Cardio) RHYTHM: regular rhythm HEART SOUNDS: S1 normal heart sound present and S2 normal heart sound present GI: COMMON NORMALS: Normal to inspection, nondistended, normoactive bowel sounds present, Soft to palpation and non-tender PALPATION: Yes Soft to palpation Extremity: COMMON NORMALS: no joint enlargement and no pedal edema OTHER: Left arm fistula. Neuro: COMMON NORMALS: patient oriented x3 and moves all extremities Skin: COMMON NORMALS: no rashes or lesions noted GENERAL SKIN EXAM: no rashes or lesions noted Data : 01/13/20 10:15 01/13/20 05:15 A&P Assessment and plan (1) COVID-19: With noted generalized weakness, currently is feeling better. Also reported episode of presyncope. Hypoxia. Presyncopal episode with HD. He has been able to wean down off oxygen today, and is overall feeling pretty well. Today reports is doing much better. He is noted to have pancytopenia, as well as monocytosis on manual differential. We have requested peripheral smear to be reviewed by pathologist. Pancytopenia may be secondary to viral illness. Monitor his neutrophils at this time. Due to risk factors for severe disease illness. Reviewed the severe not indicated with his renal function. Status: Acute (2) ESRD on dialysis: Continue per nephrology. Plan for MWF Status: Acute Additional A&P Information Renal cell cancer status post left nephrectomy Solitary right kidney Anemia of chronic disease, required blood transfusion in the past as well Currently hglobin stable Not a candidate for anticoagulation for DVT prophylaxis, would use SCDs for now Renal dialysis diet DNR/DNI Attestations Medical Necessity Statement*: Continue admission for assessment and management of improving severe COVID-19 pneumonia with underlying risk factors including advanced age, ESRD. Coding Level of Care Code Acute Supervisor Metal [employer]anging for g Fwd Exam Comprehensive Diagnoses COVID-19 U07.1 ESRD on dialysis N18.6; Z99.2
--- NOTE | 2020-01-13 21:36 | PC.NURSE ---
Received report on patient from Tonie LAWLER. Assumed care at this time.
[2020-01-14] VITALS (21 sets, daily range): BP systolic 135–161; BP diastolic 51–98; PULSE 63–87; RESP 7–24; TEMP 36.6–36.9; O2SAT 92–100
[2020-01-14 07:19] LABS: Hematocrit 34.6 % (42.0-52.0); Hemoglobin 10.7 g/dL (11.7-16.6); Mean Corpuscular HGB Conc 30.9 g/dL (30.0-36.0); Mean Corpuscular Hemoglobin 34.9 pg (28.0-34.0); Mean Corpuscular Volume 112.7 fL (80-94); Mean Platelet Volume 14.2 fL (7.4-10.4); Platelet Count 140 10^3/cmm (130-400); Red Blood Count 3.07 10^6/uL (4.1-5.3); Red Cell Distribution Width 18.8 % (12.1-15.1)
[2020-01-14 07:53] LABS: Slide Review Slide Review Perform
[2020-01-14 07:56] LABS: Absolute Segmented Neutrophil 1.9 10/cmm (1.6-7.1); Band Neutrophils Absolute 0.6 10^3/cmm (0.0-1.2); Lymphocytes 6 %; Lymphocytes Absolute 0.6 10^3/cmm (1.2-3.4); Monocytes Absolute 4.7 10^3/cmm (0.1-0.6); Segmented Neutrophils 24 %; Total Cells Counted 100 (0-100)
[2020-01-14 07:57] LABS: Anisocytosis 1+; Poikilocytosis 1+
[2020-01-14 07:58] LABS: Absolute Neutrophil 2.6 10^3/cmm (1.4-6.5); Macrocytosis 1+; Platelet Estimate Normal (Normal)
[2020-01-14] MEDS: levoFLOXacin 750 mg Tablet PO (08:20)
[2020-01-14] MEDS: pantoprazole DR 40 mg Tablet PO (08:21)
[2020-01-14] MEDS: dexamethasone 4 mg Tablet 6 MG PO (08:21)
[2020-01-14] MEDS: midodrine 5 mg TABLET 10 MG PO ×2 (08:21→16:25)
[2020-01-14 08:40] LABS: Alanine Aminotransferase 9 U/L (0-41); Albumin Level 4.3 g/dL (3.5-5.2); Alkaline Phosphatase 55 IU/L (40-130); Blood Urea Nitrogen 55 mg/dL (8-23); Calcium 8.3 mg/dL (8.5-10.5); Carbon Dioxide 25 mmol/L (22-29); Chloride 92 mmol/L (98-107); Globulin 3.8 g/dL (1.3-4.6); Glucose 88 mg/dL (65-115); Magnesium 2.3 mg/dL (1.7-2.3); Osmolality Calculated 295 mOsm/kg (285-295); Parathyroid Hormone 222.5 pg/mL (15-65); Phosphorus 5.5 mg/dL (2.5-4.5); Sodium 135 mmol/L (136-145); Total Bilirubin 0.6 mg/dL (0.15-1.2); Total Protein 8.1 g/dL (6.6-8.7)
[2020-01-14 08:42] LABS: Anion Gap 23.1 (5-19); Aspartate Amino Transferase 29 U/L (0-40); Potassium 5.1 mmol/L (3.5-5.1)
[2020-01-14 08:43] LABS: Calcium 8.3 mg/dL (8.5-10.5)
--- NOTE | 2020-01-14 10:33 | PM.PN ---
Subjective Subjective: Interval history: Feels very well today with no acute complaints. Breathing comfortably. Eating and drinking well, no new other acute issues. Pending dialysis today No uremic Sx, no hypervol Sx. AVF looks good Hemodynamics look good Medications: Medication Review Details: Vitals/I&O/Wt Last Vital Signs Temp 98.0 F 01/14/20 05:56 Pulse 65 01/14/20 08:22 Resp 17 01/14/20 08:22 BP 138/54 01/14/20 08:00 Pulse Ox 95 01/14/20 08:22 01/13/20 01/14/20 01/14/20 22:59 06:59 14:59 Intake Total 160 / 640 120 / 120 Output Total 200 / 500 150 / 650 Balance -40 / 140 -150 / -10 120 / 120 Weight last 48 hrs Weight 83.915 kg Physical Exam Narrative: EXAM NARRATIVE: Constitutional: Awake, conversant, jovial HEENT: Wet mucosa, no jvp, non icteric Lungs: Bilaterally clear without discernible wheeze, rales in all lung zones CVS: S1 S2, no murmurs Abdo: Soft, BS ok Ext 4: Minimal edema, peripheral perfusion with no cyanosis Neurological: Grossly non-focal Data : 01/14/20 05:30 01/14/20 05:30 A&P Additional A&P Information 1. ESRD - for dialysis today; 2K, UF 1.1L per his request - dose meds for eGFR < 15 on dialysis 2. Lytes look good; dialysis today 3. Hemodynamics look good 4. COVID - recovering well - possible DC eulogio Rios MD Nephrology [phone] Patient seen and examined via telemedicine, with the assistance of the bedside RN Attestations Medical Necessity Statement*: f/u for ESRD mgmt Coding Level of Care Code Acute Supervisor [employer] for Chg Fwd
--- NOTE | 2020-01-14 14:25 | PM.DCS ---
Discharge Providers Date of Admission: 01/13/20 01:19 Date of Discharge: January 14, 2020 Attending Provider at Admission: Ralph Stanley MD Attending Provider at Discharge: Rufino Tyler Primary Care Provider: Ryan Syed MD Diagnoses at Discharge Discharge Diagnosis (1) COVID-19: Status: Acute (2) ESRD on dialysis: Status: Acute (3) Monocytosis: Status: Acute (4) Chronic anemia: Status: Chronic Reason for Visit Reason for Visit: Weakness, Hypoxia, COVID + Hospital Course Hospital Course: Very pleasant 84-year-old gentleman with ESRD, solitary kidney after nephrectomy due to renal cell carcinoma, history of CAD, history of GI bleeding, anemia, and a number of other chronic conditions was admitted for assessment management after episode of presyncope, generalized weakness and hypoxia. Noted during lethargic, fatigued. Noted presyncope event after dialysis where he was sent from to the hospital. He said no fever. He was diagnosed with coronavirus. His roommate at residential had tested positive as well. He was requiring 2 L of oxygen on presentation. Due to this was started on dexamethasone. Did not receive Relistor due to poor renal function. He quickly weaned off oxygen requirement. His counts were monitored in the hospital due to mild decrease in all cell lines. He is also noted to have monocytosis, due to which peripheral smear was sent out. Discussed with pathology with recommendation for flow cytometry assessment due to somewhat concerning monocytosis, perhaps related to pulmonary condition, not excluding MDS. Flow cytometry has been ordered, and results will need to be followed up. Monocytosis not thought to be related to his coronavirus as looking back, has had monocytosis as far back as July. Discussed this with patient and that there is incidental finding will need closer assessment. Ideally discussed with his frothing machine operator/oncologist with whom he will be following up regarding his past history of renal cell carcinoma. He otherwise is receiving hemodialysis today, so far uneventfully. He reports he is feeling very well. He has been doing well on room air. He reports his appetite has been good. He reports his strength is back to normal. He is happy to return to the residential. Please continue to monitor his oxygenation. Monitor for any additional symptoms including any chest pain or pressure, any focal changes, any signs of VTE, any worsening of COVID-19 symptoms which may prompt need to return to ER. Please resume regular follow-up with specialty providers by either tele-visits, or once safe after discontinuation of isolation. Physical Exam Const: COMMON NORMALS: no acute distress, patient oriented x3 and alert ORIENTATION/CONSCIOUSNESS: Yes awake OTHER: Conversant. In good spirits. Currently undergoing hemodialysis. HENMT: COMMON NORMALS: oropharynx normal Neck/C-Spine: COMMON NORMALS: no JVD Resp: COMMON NORMALS: normal respiratory effort and clear to auscultation bilaterally AUSCULTATION: clear to auscultation bilaterally Cardio: COMMON NORMALS: no JVD, regular rhythm, S1 normal heart sound present, S2 normal heart sound present and No murmurs present (Cardio) RHYTHM: regular rhythm HEART SOUNDS: S1 normal heart sound present and S2 normal heart sound present GI: COMMON NORMALS: Normal to inspection, nondistended, normoactive bowel sounds present, Soft to palpation and non-tender PALPATION: Yes Soft to palpation Extremity: COMMON NORMALS: no joint enlargement and no pedal edema Neuro: COMMON NORMALS: patient oriented x3 and moves all extremities SENSORIUM/ORIENTATION: Yes alert Skin: COMMON NORMALS: no rashes or lesions noted GENERAL SKIN EXAM: no rashes or lesions noted Discharge Data Data Completed and Pending: Completed Studies During Hospitalization Category Date Time Status XR chest 1V marcos ble [id number] Stat Exams 01/12/20 21:19 Completed Pending at discharge Category Date Time Status Basic Metabolic P joseph AM LABS Lab 01/15/20 04:00 Ordered Complete Blood Co unt w/Auto AM LABS Lab 01/15/20 04:00 Ordered Complete Blood Co unt w/Auto AM LABS Lab 01/15/20 04:00 Ordered Complete Blood Co unt w/Auto AM LABS Lab 01/16/20 04:00 Ordered Comprehensive Met abolic Panel AM LA BS Lab 01/15/20 04:00 Ordered Comprehensive Met abolic Panel AM LA BS Lab 01/16/20 04:00 Ordered Leukemia/Lymphoma Evaluation Routin e Lab 01/14/20 13:25 Received Magnesium AM LABS Lab 01/15/20 04:00 Ordered Magnesium AM LABS Lab 01/16/20 04:00 Ordered Phosphorus AM LAB S Lab 01/15/20 04:00 Ordered Phosphorus AM LAB S Lab 01/16/20 04:00 Ordered Labs from last 24 hours 01/14/20 01/14/20 01/14/20 13:25 05:30 05:30 WBC RBC Hgb Hct MCV MCH MCHC RDW Plt Count MPV Lymph % (Auto) Bledsoe % (Auto) Lymph # (Auto) Bledsoe # (Auto) Total Counted Atypical Lymphs % Absolute Neutrophi ls Segmented Neutroph ils Abs Segm Neuts (Ma n) Band Neutrophils Abs Band Neuts (Ma n) Absolute Lymphocyt es Lymphocytes (Manua l) Monocytes (Manual) Absolute Monocytes Metamyelocytes Platelet Estimate Poikilocytosis Anisocytosis Macrocytosis Sodium 135 L Potassium 5.1 Chloride 92 L Carbon Dioxide 25 Anion Gap 23.1 H BUN 55 H Creatinine 7.5 H* GFR Calculation Not Reportable Glucose 88 Calculated Osmolal ity 295 Calcium 8.3 L Phosphorus 5.5 H Magnesium 2.3 Total Bilirubin 0.6 AST 29 ALT 9 Alkaline Phosphata se 55 Total Protein 8.1 Albumin 4.3 Globulin 3.8 PTH Intact 222.5 H Calcium (PTH Intac t) 8.3 L Leuk/Lym Spec Type Pending Leuk/Lym Clinical Info Pending Leuk/Lymph Viabili ty Pending Leuk/Lym Sample De scrip Pending Leuk/Lym # of Steve ers Pending Leuk/Lym Markers Pending Leuk/Lym Gating St rategy Pending Leuk/Lym Interpret ation Pending 01/14/20 01/14/20 01/14/20 05:30 05:30 05:30 WBC 8.0 RBC 3.07 L Hgb 10.7 L Hct 34.6 L MCV 112.7 H MCH 34.9 H MCHC 30.9 RDW 18.8 H Plt Count 140 MPV 14.2 H Lymph % (Auto) Not Reportable Bledsoe % (Auto) Not Reportable Lymph # (Auto) Not Reportable Bledsoe # (Auto) Not Reportable Total Counted 100 Atypical Lymphs % 2.0 Absolute Neutrophi ls 2.6 Segmented Neutroph ils 24 Abs Segm Neuts (Ma n) 1.9 Band Neutrophils 8.0 Abs Band Neuts (Ma n) 0.6 Absolute Lymphocyt es 0.6 L Lymphocytes (Manua l) 6 Monocytes (Manual) 59.0 Absolute Monocytes 4.7 H Metamyelocytes 1.0 Platelet Estimate Normal Poikilocytosis 1+ H Anisocytosis 1+ H Macrocytosis 1+ H Sodium Cancelled Potassium Cancelled Chloride Cancelled Carbon Dioxide Cancelled Anion Gap Cancelled BUN Cancelled Creatinine Cancelled GFR Calculation Cancelled Glucose Cancelled Calculated Osmolal ity Cancelled Calcium Cancelled Phosphorus Cancelled Magnesium Cancelled Total Bilirubin Cancelled AST Cancelled ALT Cancelled Alkaline Phosphata se Cancelled Total Protein Cancelled Albumin Cancelled Globulin Cancelled PTH Intact Cancelled Calcium (PTH Intac t) Cancelled Leuk/Lym Spec Type Leuk/Lym Clinical Info Leuk/Lymph Viabili ty Leuk/Lym Sample De scrip Leuk/Lym # of Steve ers Leuk/Lym Markers Leuk/Lym Gating St rategy Leuk/Lym Interpret ation Vitals: Last Vital Signs Temp 98.4 F 01/14/20 13:50 Pulse 72 01/14/20 13:00 Resp 10 L 01/14/20 13:00 BP 151/65 01/14/20 13:00 Pulse Ox 94 01/14/20 12:00 Discharge Plan Discharge Patient Disposition: Xfer SNF Condition: Stable Prescriptions: New levofloxacin 750 mg Tablet 750 mg PO EVERY OTHER DAY Qty: 3 RF: 0 Continued Zofran 4 mg Tablet 4 mg PO Q6H PRN (Reason: Nausea) RF: 0 Milk of Magnesia 400 mg/5 mL Suspension 30 ml PO DAILY PRN (Reason: Constipation) RF: 0 Dulcolax (bisacodyl) 10 mg Suppository 10 mg MD DAILY PRN (Reason: Constipation) RF: 0 Protonix 40 mg Tablet,Delayed Release (Dr/Ec) 40 mg PO DAILY RF: 0 Benadryl Allergy 25 mg Tablet 25 mg PO Q6H PRN (Reason: Insomnia) RF: 0 magnesium citrate Solution 150 ml PO DAILY PRN (Reason: Constipation) RF: 0 Dulcolax (bisacodyl) 5 mg Tablet,Delayed Release (Dr/Ec) 5 mg PO DAILY PRN (Reason: Constipation) RF: 0 Claritin 10 mg Tablet 10 mg PO DAILY RF: 0 Mylanta Maximum Strength 400-400-40 mg/5 mL Suspension 30 ml PO TID PRN (Reason: Acid Reflux) RF: 0 Robitussin Cough and Cold CF 2.5-5-50 mg/5 mL Liquid 15 ml PO Q4H PRN (Reason: Cough) RF: 0 midodrine 10 mg Tablet 10 mg PO TID RF: 0 RenaPlex-D 800 mcg-12.5 mg -2,000 unit Tablet 1 tab PO DAILY RF: 0 Discharge Orders: Discharge Order (Routine); Ordered 01/14/20 Ordered By: Rufino Tyler Referrals: Ryan Syed MD [Primary Care Provider] - 2 weeks (Covid 19, incidentally noted monocytosis - follow up on flow cytometry) Discharge Diet: Usual diet and As Directed Discharge Activity: Increase activity as tolerated Patient Instructions: Levofloxacin (By mouth) Activity Restrictions/Additional Instructions: Maintain isolation due to COVID-19 infection. Continue renal/hemodialysis diet. Follow-up with hemodialysis MWF at isolation dialysis unit. Resume follow-up with nephrology once off isolation. Please resume follow-up with frothing machine operator/oncologist after of isolation. Please follow-up with heme-onc regarding flow cytometry results and monocytosis. Concern is for possible bone marrow process, not excluding MDS, but requiring additional studies. Please repeat CBC in 4 days to reassess for monocyte count, neutrophil count. Continue chemistry studies as recommended by nephrology. Currently not requiring any oxygen, but monitor oxygenation. Discharge Attestations Time Spent in Discharge Care*: greater than 30 min Status at Discharge: Cognitive status at discharge: cognitively intact, Behavioral status at discharge: cooperative, Quality Metrics Clinical Quality Measures During this hospital stay, did patient experience: None Coding Level of Care Code Acute Maintenance Technician 3Rd Shift for Chg Fwd Diagnoses COVID-19 U07.1 ESRD on dialysis N18.6; Z99.2 Monocytosis D72.821 Chronic anemia D64.9
--- NOTE | 2020-01-14 17:25 | PC.NURSE ---
REPORT CALLED TO [facility]. ALSO UPDATED PATIENT'S SON, RASHAUN, OF PATIENT'S DISCHARGE.
--- NOTE | 2020-01-19 10:18 | PC.SOCIAL ---
Notified by Dr Tyler that Flow Cytometry results have returned. He has talked with PA at [facility] Quin Hebert. This nurse called [facility] where patient resides and they are unaware that he has a Oncologist/ Call Center Team Leader currently. Called Son Geoff and he indicates he is also not sure if he sees a Call Center Team Leader/ Oncologist specialist. He did mention that Quin from the [facility] in [place] called him yesterday and mentioned getting a consult with hematology/ oncology while there due to is blood counts and recent information provided based on the flow cytometry results. It is likely patient will be ready to return back to [facility] per sons report by end of week. Called [facility] in [place] and was advised could fax the paper result of this test and the email from Dr Tyler that includes his recommendations to vu Marsh at [phone]. Also called [facility] and faxed them the results with a copy of the email provided by Dr Tyler with his recommendations. For this facility received the fax number [phone]. Confirmation received that both faxes were transmitted successfully.
== END 2020-01-14 17:11 | disposition skilled nursing facility (03) | DRG 177 ==
LOC: ER 01-13 01:25 → ICU 01-13 01:51
PROVIDERS: Emergency Medicine; Internal Medicine Nephrology; Admitting Provider Internal Medicine; PCP Internal Medicine; Visit Provider Internal Medicine
DX: U07.1 COVID-19 (principal); J12.89 Other viral pneumonia; N18.6 End stage renal disease; Z99.2 Dependence on renal dialysis; D63.1 Anemia in chronic kidney disease; Z66 Do not resuscitate; H40.9 Unspecified glaucoma; I34.0 Nonrheumatic mitral (valve) insufficiency; I25.2 Old myocardial infarction; Z85.46 Personal history of malignant neoplasm of prostate; Z85.528 Personal history of other malignant neoplasm of kidney; Z87.440 Personal history of urinary (tract) infections; Z90.5 Acquired absence of kidney; Z90.49 Acquired absence of other specified parts of digestive tract; D72.821 Monocytosis (symptomatic); I25.10 Atherosclerotic heart disease of native coronary artery without angina pectoris
CPT/HCPCS: 12345; 36415; 71045; 80048; 80053; 80500; 82310; 82550; 83605; 83615; 83735; 83880; 83970; 84100; 84145; 84484; 85007; 85025; 85378; 85384; 85610; 86140; 86706; 86803; 87340; 87426; 88184; 88185; 93005; 96375; 99283; J1100; J8540; Q3014

== ENCOUNTER 2020-01-16 21:08 | Emergency (ER) | payer MEDICARE, BC, SELFPAY ==
[2020-01-16 21:15] VITALS: BP 168/74; PULSE 103; RESP 20; TEMP 38.3; O2SAT 96; BMI 22.9
--- NOTE | 2020-01-16 22:11 | XRR_ITS ---
PROCEDURE INFORMATION: Exam: XR Chest, 1 View Exam date and time: 01/16/2020 10:40 PM Age: 84 years old Clinical indication: Shortness of breath; Additional info: SOB TECHNIQUE: Imaging protocol: XR of the chest Views: 1 view. COMPARISON: [place] XR chest 1V portable [id number] 01/12/2020 9:30 PM FINDINGS: Lungs: Mild airspace opacity in each lung base, consistent with pneumonia. Pleural space: Unremarkable. No pleural effusion. No pneumothorax. Heart/Mediastinum: Unremarkable. No cardiomegaly. Bones/joints: No acute fracture. XR/XR chest 1V portable [id number] IMPRESSION: Mild airspace opacity in each lung base, consistent with pneumonia.
[2020-01-16 23:15] VITALS: PULSE 98; RESP 20; O2SAT 94
[2020-01-16 23:30] VITALS: RESP 18
[2020-01-16] MEDS: acetaminophen 325 mg Tablet 650 MG PO (23:49)
[2020-01-17] VITALS (8 sets, daily range): BP systolic 104–156; BP diastolic 42–63; PULSE 71–92; RESP 16–22; TEMP 36.8; O2SAT 92–100
[2020-01-17 00:19] LABS: Hematocrit 31.5 % (42.0-52.0); Hemoglobin 9.5 g/dL (11.7-16.6); Lymphocytes # 0.3 10^3/uL (0.8-4.8); Lymphocytes % 7.1 %; Mean Corpuscular HGB Conc 30.2 g/dL (30.0-36.0); Mean Corpuscular Hemoglobin 34.1 pg (28.0-34.0); Mean Corpuscular Volume 112.9 fL (80-94); Monocytes # 2.1 10^3/uL (0.2-0.9); Monocytes % 58.5 %; Neutrophils # 1.08 10^3/uL (1.8-7.7); Neutrophils % 29.5 %; Nucleated Red Blood Cells % 0 %; Platelet Count 87 10^3/cmm (130-400); Red Blood Count 2.79 10^6/uL (4.1-5.3); Red Cell Distribution Width 18.1 % (12.1-15.1); White Blood Count 3.7 10^3/uL (4.0-10.0)
[2020-01-17 00:26] LABS: Lactate (Lactic Acid level) 1.1 mmol/L (0.5-2.2)
[2020-01-17 00:35] LABS: Alanine Aminotransferase 8 U/L (0-41); Albumin Level 3.7 g/dL (3.5-5.2); Alkaline Phosphatase 46 IU/L (40-130); Anion Gap 15.8 (5-19); Aspartate Amino Transferase 22 U/L (0-40); Blood Urea Nitrogen 22 mg/dL (8-23); Calcium 8.1 mg/dL (8.5-10.5); Carbon Dioxide 29 mmol/L (22-29); Chloride 96 mmol/L (98-107); Globulin 3.6 g/dL (1.3-4.6); Glucose 107 mg/dL (65-115); NT Pro B Type Natriuretic Pept 21321 pg/mL (0-450); Osmolality Calculated 288 mOsm/kg (285-295); Potassium 3.8 mmol/L (3.5-5.1); Sodium 137 mmol/L (136-145); Total Bilirubin 0.7 mg/dL (0.15-1.2); Total Protein 7.3 g/dL (6.6-8.7)
[2020-01-17 01:23] LABS: Procalcitonin 2.48 ng/mL (0-0.5)
[2020-01-17 01:33] LABS: C Reactive Protein 61.2 mg/L (0.0-4.9)
--- NOTE | 2020-01-17 03:05 | ED_ITS ---
HPI - General Adult General: Chief complaint: General Medical Stated complaint: low 02 Time Seen by Provider: 01/16/20 21:32 History of Present Illness: HPI narrative: 84-year-old [facility] patient he was COVID-19 positive. He is also a renal failure patient dependent on dialysis. He gets dialysis through a left arm graft. He was at dialysis on Sunday evening, and began to get short of breath. He had a sat in the low 80s there. He was transferred here by ambulance for that. He is also had a fever. Onset (ago): hour(s) Radiation: non-radiation Severity: moderate Relieving factors: other (Oxygen) Associated symptoms: Reports confusion, cough, dyspnea, fevers/chills, nausea and short of breath; Deny chest pain, headache(s), rash, palpitations or vomiting Review of Systems Const: Reports: fever(s) and chills ENMT: Denies: swelling of lips/tongue, change in hearing or sinus pain Card: Denies: chest pain, palpitations or irregular heart rhythm Resp: Reports: dyspnea GI: Reports: nausea; Denies: vomiting : Reports: difficulty urinating; Denies: dysuria or hematuria Musc: Denies: neck pain Skin/Breast: Denies: rash, pruritus or erythema Neuro: Reports: confusion; Denies: headache(s), dizziness, vertigo or seizure-like activity Psych: Denies: anxiety PFSH ED PFSH: Medical History (Updated 01/17/20 @ 03:21 by Jt Maxwell DO) 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 Chronic anemia Clostridioides difficile infection -found to be positive for C.difficile and Norovirus 08/10 Dieulafoy lesion (hemorrhagic) of intestine DNR (do not resuscitate) End stage renal disease GI bleed Due to dieulafoy lesion, AVM Glaucoma Metabolic encephalopathy Mitral valve regurgitation NSTEMI (non-ST elevated myocardial infarction) Prostate cancer s/p cryotherapy Recurrent UTI Renal cell carcinoma Left-sided Small bowel obstruction Takotsubo cardiomyopathy Thrombocytopenia Surgical History H/O colectomy 7 inches removed H/O inguinal hernia repair H/O nasal septoplasty History of nephrectomy Left-sided S/P colonoscopic polypectomy Family History Denies family history of Clotting disorder Dementia Social History Smoking and tobacco status: never smoked Alcohol intake: never Housing: Halfway Physical Exam Const: GENERAL APPEARANCE: well developed ORIENTATION/CONSCIOUSNESS: Yes oriented to person and Yes oriented to place; not oriented to time HENMT: COMMON NORMALS: normocephalic, external ears normal and Normal external nose present HEAD & SCALP: normocephalic FACE & SINUS: normal facial exam NOSE: Normal external nose present and No nasal discharge present EXTERNAL EAR: Yes external ears normal Eye: COMMON NORMALS: Equal, round and reactive pupils present, EOMs intact bilaterally and conjunctivae normal EYELID: eyelids normal CONJUNCTIVA: Yes conjunctivae normal PUPIL: Yes Equal, round and reactive pupils present Neck/C-Spine: GENERAL: No tracheal deviation Chest: COMMONS NORMALS: normal inspection of the chest CHEST: No tenderness Resp: COMMON NORMALS: clear to auscultation bilaterally EFFORT & INSPECTION: No tachypneic, No respiratory distress, No retractions, No uses accessory muscles and No tracheal deviation AUSCULTATION: clear to auscultation bilaterally, no rhonchi, no wheezes and diminished lung sounds Cardio: COMMON NORMALS: regular rate and regular rhythm RATE: regular rate RHYTHM: regular rhythm HEART SOUNDS: Murmur heart sound present PERIPHERAL PULSES: radial pulses present GI: INSPECTION: No abdominal distension AUSCULTATION: No Hyperactive bowel sounds present and No Hypoactive bowel sounds present PALPATION: No Guarding due to palpation present (GI) and No Rigid due to palpation PERCUSSION: no dullness to percussion and no tympanic to percussion Neuro: SENSORIUM/ORIENTATION: Yes oriented to person, Yes oriented to place and No oriented to time Skin: NARRATIVE SKIN EXAM: Graft to left UE Course Vital Signs: Vital signs: Vital Signs Temperature 100.9 F H 01/16/20 21:15 Pulse Rate 80 01/17/20 02:58 Respiratory Rate 22 H 01/17/20 01:00 Blood Pressure 131/56 01/17/20 02:58 Pulse Oximetry 94 01/17/20 02:58 MDM - General Adult MDM Narrative: Medical decision making narrative: 84-year-old gentleman, COVID positive, with chest x-ray findings of peripheral infiltrates indicative of viral pneumonia caused by COVID-19. He is hypoxic, requiring 3 L of oxygen currently to maintain saturations. He is dialysis dependent. He is mildly anemic, and has a creatinine of 4.4. We have no COVID-19 unit beds available at this facility. He will be transferred to the [facility] for further treatment. Lab Data: Labs: Lab Results 01/16/20 01/16/20 01/16/20 Range/Units 00:01 00:01 00:01 WBC 3.7 L (4.0-10.0) 10^3/ uL RBC 2.79 L (4.1-5.3) 10^6/u L Hgb 9.5 L (11.7-16.6) g/dL Hct 31.5 L (42.0-52.0) % MCV 112.9 H (80-94) fL MCH 34.1 H (28.0-34.0) pg MCHC 30.2 (30.0-36.0) g/dL RDW 18.1 H (12.1-15.1) % Plt Count 87 L (130-400) 10^3/c mm MPV 14.0 H (7.4-10.4) fL Neut % (Auto) 29.5 % Lymph % (Auto) 7.1 % Camp % (Auto) 58.5 % Eos % (Auto) 0.0 % Baso % (Auto) 0.0 % Neut # (Auto) 1.08 L (1.8-7.7) 10^3/u L Lymph # (Auto) 0.3 L (0.8-4.8) 10^3/u L Camp # (Auto) 2.1 H (0.2-0.9) 10^3/u L Eos # (Auto) 0.0 (0.0-0.8) 10^3/u L Baso # (Auto) 0.0 (0.0-0.1) 10^3/u L Nucleated RBC % (a uto) 0 % Nucleated RBCs # 0.0 /100WBC Sodium 137 (136-145) mmol/L Potassium 3.8 (3.5-5.1) mmol/L Chloride 96 L (98-107) mmol/L Carbon Dioxide 29 (22-29) mmol/L Anion Gap 15.8 (5-19) BUN 22 (8-23) mg/dL Creatinine 4.4 H (0.7-1.2) mg/dL GFR Calculation Not Reportable Glucose 107 (65-115) mg/dL Calculated Osmolal ity 288 (285-295) mOsm/k g Lactate 1.1 (0.5-2.2) mmol/L Calcium 8.1 L (8.5-10.5) mg/dL Total Bilirubin 0.7 (0.15-1.2) mg/dL AST 22 (0-40) U/L ALT 8 (0-41) U/L Alkaline Phosphata se 46 (40-130) IU/L C-Reactive Protein 61.2 H (0.0-4.9) mg/L NT-Pro-B Natriuret Pep 88633 H (0-450) pg/mL Total Protein 7.3 (6.6-8.7) g/dL Albumin 3.7 (3.5-5.2) g/dL Globulin 3.6 (1.3-4.6) g/dL Procalcitonin 2.48 H (0-0.5) ng/mL Discharge Plan Discharge Patient Disposition: Xfer Other Clinical Impression: COVID-19 Respiratory failure Qualifiers: Chronicity: acute Respiratory failure complication: hypoxia Qualified Code(s): J96.01 - Acute respiratory failure with hypoxia Condition: Stable Referrals: Ryan Syed MD [Primary Care Provider] - Coding Level of Care Code ED Supervisor [employer]osit for [facility] Fwd Exam Comprehensive
== END 2020-01-17 10:07 | disposition other institution (70) ==
PROVIDERS: Emergency Provider Emergency Medicine; PCP Internal Medicine
DX: U07.1 COVID-19 (principal); J96.01 Acute respiratory failure with hypoxia; N18.6 End stage renal disease; Z99.2 Dependence on renal dialysis; I25.2 Old myocardial infarction; Z85.46 Personal history of malignant neoplasm of prostate; Z85.528 Personal history of other malignant neoplasm of kidney; Z90.5 Acquired absence of kidney
CPT/HCPCS: 12345; 36415; 71045; 80053; 83605; 83880; 84145; 85025; 86140; 99283